=== PATIENT | female | born 1980 | race Caucasian/White ===

== ENCOUNTER → 2016-06-14 | Outpatient (REF) | payer OTHER ==
[~2016-06-14] MED LIST: ACET50TAOT PO; BACT800T5 PO; CELE-19 PO; CYAN1000VL IM; IBUP600T26 PO; NEUR600T PO; OXYCO5TA PO; TYLE325T5 PO; VITAD1000T PO
== END ==
LOC: M LAB REF 12:37
PROVIDERS: ATTEND Obstetrics & Gynecology
DX: Z36 Encounter for antenatal screening of mother (principal)

== ENCOUNTER 2016-07-16 12:07 | Inpatient (IN) | payer OTHER ==
[2016-07-16] VITALS (49 sets, daily range): BP systolic 102–159; BP diastolic 51–100
[~2016-07-16] VITALS: Ht 157.5 cm; Wt 82.0 kg
[~2016-07-16 12:07] MED LIST changes: +OXYC-517 PO; -OXYCO5TA PO
[2016-07-16] MEDS ORDERED: LR 1,000 ML IV SCH (12:11)
[2016-07-16] MEDS ORDERED: LACTATED RINGER'S 1000 ML IV STA (12:11)
[2016-07-16] MEDS ORDERED: OXYTOCIN DRIP 30 UNITS in APPROPRIATE DILUENT 1 EA IV SCH ×2 (12:15→21:38)
[2016-07-16 13:03] LABS: MEAN CORPUSCULAR HEMOGLOBIN 32.1 pg (27.0-33.0); MEAN CORPUSCULAR HGB CONC 34.5 g/dl (32.0-36.5); MEAN CORPUSCULAR VOLUME 93.1 fl (80.0-96.0); RED CELL DISTRIBUTION WIDTH 12.7 % (11.5-14.5); WHITE BLOOD COUNT 10.5 K/mm3 (4.0-10.0)
[2016-07-16] MEDS ORDERED: TUMS500C PO (14:32)
[2016-07-16] MEDS ORDERED: PRENTAB9 PO (14:32)
[2016-07-16] MEDS ORDERED: ACET50TA PO (14:32)
[2016-07-16] MEDS ORDERED: CALCIUM CARBONATE 500 MG CHEW U/D PO PRN (15:00)
[2016-07-16] MEDS ORDERED: FENTANYL 2MCG/ML ROPIVACAINE 0.2% NACL 250 ML CADD As Ordered ONE (16:35)
[2016-07-16] MEDS ORDERED: FENTANYL/ROPIVACAINE/NACL CADD 250 ML EPIDURAL SCH (17:45)
[2016-07-16] MEDS ORDERED: ePHEDrine SULFATE 25 MG/5 ML(5MG/ML) SYRINGE IV PRN (17:45)
[2016-07-16] MEDS ORDERED: NALOXONE INJ 0.4 MG/1 ML VIAL (J2310) IV PRN (17:45)
[2016-07-16] MEDS ORDERED: ONDANSETRON 4MG/2ML VIAL (J2405) IV PRN (17:45)
[2016-07-16] MEDS ORDERED: diphenhydrAMINE INJ 50MG/ML VIAL (J1200) IV PRN (17:45)
[2016-07-16] MEDS ORDERED: EPIDURAL/PCA KEYS XX PRN (17:45)
[2016-07-16] MEDS ORDERED: EPIDURAL COMMENT XX SCH (17:45)
[2016-07-16] MEDS ORDERED: REFRIGERATOR IV KEYS XX PRN (17:45)
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
--- NOTE | 2016-07-16 19:01 | IPNPDOC ---
Obstetrical Progress Note Date of Service The patient was seen on 07/16/16 at 18:30. Progress Note Subjective: Patient received an epidural for pain management. Reports epidural was not working. Objective: heart rate: 130s, moderate variability, positive accelerations , no decelerations. Contractions: Every 2 minutes. Pitocin was turned down to 6 milliunits. Instructed nursing staff to turn down Pitocin to 2 milliunits until patient can get comfortable with her epidural. SVE: 4/100/-1, scant amount of clear fluid. Vital signs: Blood pressure 136/82, heart rate 84. Assessment: IUP at 39 weeks 3 days gestation, category 1 heart rate tracing, spontaneous rupture membranes, active labor Plan: Anesthesia notified about the patient's pain. When patient is comfortable Pitocin can be increased per order. Anticipate cervical change and spontaneous vaginal delivery. CHELSI RAMIREZ CNM Jul 16, 2016 19:01
--- NOTE | 2016-07-16 20:22 | IPNPDOC ---
Obstetrical Progress Note Date of Service The patient was seen on 07/16/16 at 20:05. Progress Note SUBJECTIVE: Patient is comfortable with epidural. OBJECTIVE: FHR: 125, moderate variability, positive accelerations, 2 minute deceleration with a quick recovery. Contractions every 2-3 minutes. Pitocin 2 mu /min. SVE: 6/100/0, moderate amount of bloody show. CURRENT LABS: Please see below. ASSESSMENT: IUP @ 39 wks 3 days gestation, active labor, Category II FHR tracing PLAN: Anticipate cervical change and . VS, I&O, 24H, Fishbone Vital Signs/I&O Vital Signs Date Time Temp Pulse Resp B/P Pulse Ox O2 Delivery O2 Flow Rate FiO2 07/16/16 19:52 98.4 86 18 117/59 07/16/16 19:45 98 CHELSI RAMIREZ CNM Jul 16, 2016 20:22
--- NOTE | 2016-07-16 20:27 | IPNPDOC ---
Obstetrical Progress Note Date of Service The patient was seen on 07/16/16 at 20:24. Progress Note SUBJECTIVE: No complaints. OBJECTIVE: FHR 130, moderate variability, positive accelerations, no decelerations. Contractions every 2 minutes. Pitocin 4 mu/min. ASSESSMENT: IUP @ 39.3, Category I FHR tracing, active labor PLAN: Anticipate cervical change CHELSI RAMIREZ CNM Jul 16, 2016 20:26
[2016-07-16] MEDS ORDERED: METHYLERGONOVINE MALEATE 0.2 MG TAB PO PRN (21:45)
[2016-07-16] MEDS ORDERED: DIBUCAINE 1% OINTMENT 30GM TOP PRN (21:45)
[2016-07-16] MEDS ORDERED: RHOGAM 300 MCG (1500 IU) INJ (J2790) IM SCH (21:45)
[2016-07-16] MEDS ORDERED: DOCUSATE SODIUM 100 MG CAP PO PRN (21:45)
[2016-07-16] MEDS ORDERED: ANUSOL HC CREAM 30GM TOP PRN (21:45)
[2016-07-16] MEDS ORDERED: MEASLES,MUMPS,RUBELLA VACCINE INJ (MMR-II) (90707) SC SCH (21:45)
--- NOTE | 2016-07-16 21:46 | DNPDOC ---
Delivery Note Delivery Note The patient is a 36-year-old now G 5 P 3 at 39.3 weeks' gestation who presented to labor and delivery after being sent over from the office with complaints of ruptured membranes on 07/15/2016 at 1430. She progressed to fully dilated at to 210. Patient pushed to a spontaneous vaginal delivery at 2112 to a living male in the MILES position with restitution to ROT. No Nuchal cord. Occult cord noted. Shoulders delivered with ease and the corpus immediately followed. Baby placed on maternal abdomen crying and active. Cord clamped 2 and cut by father of the baby 4 minutes after . Cord blood obtained. Spontaneous delivery of intact placenta with a three-vessel cord by Ibarra mechanism at 2122. Uterine hemostasis achieved by rapid infusion of IV Pitocin and uterine fundal massage. Perineum and vagina inspected and found to intact. EBL and 250. Infant's 9/9. Weight 6 lbs. 6 oz, 2880 g. 's name Melanie HALL and mom will be breast-feeding. Mother and baby stable at this time. Dr. Dillard aware of delivery. CHELSI RAMIREZ CNM Jul 16, 2016 21:45
[2016-07-17] MEDS: IBUPROFEN 800 MG TAB PO PRN ×2 (00:20→15:09)
[2016-07-17 06:15] VITALS: BP 121/66
[2016-07-17] MEDS: PRENATAL VITAMIN TAB PO SCH (08:11)
[2016-07-17] MEDS: ACETAMINOPHEN 500 MG TAB PO PRN ×2 (08:12→17:35)
[2016-07-17 18:03] VITALS: BP 130/89
[2016-07-18] MEDS: IBUPROFEN 800 MG TAB PO PRN (05:48)
[2016-07-18 05:55] VITALS: BP 112/71
[2016-07-18] MEDS: ACETAMINOPHEN 500 MG TAB PO PRN (08:10)
[2016-07-18] MEDS: PRENATAL VITAMIN TAB PO SCH (08:10)
[2016-07-18] MEDS ORDERED: IBUP-1114 PO (13:17)
== END 2016-07-18 13:30 | disposition home or self-care (01) | DRG 560 ==
LOC: M LDI 12:07 → M OBS 23:51
PROVIDERS: ADMIT Obstetrics & Gynecology; ATTEND Obstetrics & Gynecology
PROC: 10E0XZZ Delivery of Products of Conception, External Approach (ICD-10-PCS; principal; 2016-07-16)
DX: O99.62 Diseases of the digestive system complicating childbirth (principal); K42.9 Umbilical hernia without obstruction or gangrene; Z3A.39 39 weeks gestation of pregnancy; Z37.0 Single live birth; K46.9 Unspecified abdominal hernia without obstruction or gangrene

== ENCOUNTER → 2016-08-02 | Emergency (ER) | payer OTHER ==
[~2016-08-02] VITALS: Ht 157.5 cm; Wt 79.4 kg
[~2016-08-02] MED LIST changes: +ACET50TA PO; +ALBU17IN INH; +CLON0.5T PO; +FLUO20CA9 PO; +IBUP-1114 PO; +NICO21PAT TD; +OCEA0.654; +PRENTAB9 PO; +TRAZ10TA PO; +TUMS500C PO; +TYLE500T78 PO; +VITMTA PO
[2016-08-02 16:29] LABS: MEAN CORPUSCULAR HEMOGLOBIN 31.7 pg (27.0-33.0); MEAN CORPUSCULAR HGB CONC 34.6 g/dl (32.0-36.5); MEAN CORPUSCULAR VOLUME 91.8 fl (80.0-96.0); RED CELL DISTRIBUTION WIDTH 12.9 % (11.5-14.5); WHITE BLOOD COUNT 6.8 K/mm3 (4.0-10.0)
[2016-08-02 16:36] LABS: CONTROL LINE INT CTR LINE PRESENT; METHADONE URINE NEGATIVE (NEGATIVE); TRICYCLIC ANTIDEPRESS URINE NEGATIVE (NEGATIVE)
[2016-08-02 16:42] LABS: CONTROL LINE HCG INT CTR LINE PRESENT
[2016-08-02 16:58] LABS: ALBUMIN 3.8 GM/DL (3.2-5.2); ALBUMIN/GLOBULIN RATIO 0.95 (1.00-1.93); ALKALINE PHOSPHATASE 148 U/L (45-117); ALT/SGPT 20 U/L (12-78); ANION GAP 13 MEQ/L (8-16); AST/SGOT 30 U/L (15-37); BILIRUBIN,DIRECT 0.1 MG/DL (0.0-0.2); BILIRUBIN,TOTAL 0.6 MG/DL (0.2-1.0); BLOOD UREA NITROGEN 7 MG/DL (7-18); CALCIUM LEVEL 8.5 MG/DL (8.5-10.1); CARBON DIOXIDE LEVEL 22 MEQ/L (21-32); CHLORIDE LEVEL 111 MEQ/L (98-107); CREATININE FOR GFR 0.57 MG/DL (0.55-1.02); GLOMERULAR FILTRATION RATE > 60.0 (>60); GLUCOSE, FASTING 83 MG/DL (70-105); POTASSIUM SERUM 3.4 MEQ/L (3.5-5.1); SODIUM LEVEL 146 MEQ/L (136-145); TOTAL PROTEIN 7.8 GM/DL (6.4-8.2)
[2016-08-02 23:42] VITALS: BP 153/100
== END | disposition home or self-care (01) ==
LOC: M ED 16:07
DX: F53 Mental and behavioral disorders associated with the puerperium, not elsewhere classified (principal); Z88.1 Allergy status to other antibiotic agents; Z88.8 Allergy status to other drugs, medicaments and biological substances; F17.210 Nicotine dependence, cigarettes, uncomplicated
CPT/HCPCS: 36415; 80048; 80076; 80306; 84443; 84703; 85027; 99285; G0480

== ENCOUNTER 2016-08-03 12:51 | Inpatient (IN) | payer OTHER ==
[~2016-08-03] VITALS: Ht 157.5 cm; Wt 77.1 kg
[~2016-08-03 12:51] MED LIST changes: -ALBU17IN INH; -CLON0.5T PO; -FLUO20CA9 PO; -NICO21PAT TD; -OCEA0.654; -TRAZ10TA PO; -TYLE500T78 PO; -VITMTA PO
[2016-08-03 16:05] LABS: MEAN CORPUSCULAR HEMOGLOBIN 32.1 pg (27.0-33.0); MEAN CORPUSCULAR HGB CONC 34.6 g/dl (32.0-36.5); MEAN CORPUSCULAR VOLUME 92.6 fl (80.0-96.0); RED CELL DISTRIBUTION WIDTH 12.9 % (11.5-14.5)
[2016-08-03 16:10] LABS: CONTROL LINE INT CTR LINE PRESENT; METHADONE URINE NEGATIVE (NEGATIVE); TRICYCLIC ANTIDEPRESS URINE NEGATIVE (NEGATIVE)
[2016-08-03 16:19] LABS: CONTROL LINE HCG INT CTR LINE PRESENT
[2016-08-03 16:37] LABS: ALBUMIN 3.4 GM/DL (3.2-5.2); ALBUMIN/GLOBULIN RATIO 0.97 (1.00-1.93); ALKALINE PHOSPHATASE 129 U/L (45-117); ALT/SGPT 16 U/L (12-78); ANION GAP 11 MEQ/L (8-16); AST/SGOT 23 U/L (15-37); BILIRUBIN,DIRECT 0.3 MG/DL (0.0-0.2); BLOOD UREA NITROGEN 8 MG/DL (7-18); CALCIUM LEVEL 8.9 MG/DL (8.5-10.1); CARBON DIOXIDE LEVEL 23 MEQ/L (21-32); CHLORIDE LEVEL 107 MEQ/L (98-107); CREATININE FOR GFR 0.53 MG/DL (0.55-1.02); GLOMERULAR FILTRATION RATE > 60.0 (>60); GLUCOSE, FASTING 73 MG/DL (70-105); POTASSIUM SERUM 3.6 MEQ/L (3.5-5.1); SODIUM LEVEL 141 MEQ/L (136-145); TOTAL PROTEIN 6.9 GM/DL (6.4-8.2)
[2016-08-03] MEDS ORDERED: traZODone 50 MG TAB PO PRN (18:00)
[2016-08-03] MEDS ORDERED: MAALOX 30 ML SUSP *UDC PO PRN (18:00)
[2016-08-03] MEDS ORDERED: ACETAMINOPHEN TAB 650MG DOSE (2X325MG) PO PRN (18:00)
[2016-08-03] MEDS ORDERED: MOM 30ML SUSPENSION UDC PO PRN (18:00)
[2016-08-03] MEDS ORDERED: TYLE500T78 PO (18:53)
[2016-08-03] MEDS ORDERED: VITMTA PO (18:53)
[2016-08-03] MEDS ORDERED: ALBU17IN INH (18:53)
[2016-08-03 20:32] VITALS: BP 147/100
[2016-08-04 06:46] VITALS: BP 147/94
[2016-08-04 12:30] VITALS: BP 150/88
[2016-08-04] MEDS ORDERED: FLUOXETINE 20 MG/5 ML PO ONE (12:30)
[2016-08-04] MEDS: clonazePAM 0.5 MG TAB PO SCH ×2 (12:41→22:01)
[2016-08-04 13:30] VITALS: BP 140/100
[2016-08-04 18:00] VITALS: BP 154/110
[2016-08-04 18:18] VITALS: BP 148/104
[2016-08-04] MEDS ORDERED: traZODone 50 MG TAB PO SCH (21:00)
[2016-08-04] MEDS ORDERED: clonazePAM 0.5 MG TAB PO ONE (21:15)
[2016-08-04] MEDS ORDERED: traZODone 50 MG TAB PO PRN (21:15)
[2016-08-05 06:00] VITALS: BP 141/77
--- NOTE | 2016-08-05 06:48 | REP ---
CT BRAIN WITHOUT IV CONTRAST: CT brain is performed without IV contrast. Ventricles are normal in size and position. There is no midline shift. Area of low density in the region of the left basal ganglia is unchanged. There is no acute hemorrhage. There is no extra-axial fluid collection. There is no midline shift or mass effect. Bone window examination is unremarkable. Paranasal sinuses are clear as are the mastoid air cells. IMPRESSION: Negative noncontrast CT brain with no change since prior study of 06/21/2015. Signed by Mal Michelle MD 08/05/2016 01:52 P
--- NOTE | 2016-08-05 08:38 | MHHPE ---
DATE OF ADMISSION: 08/03/2016 LEGAL STATUS AT ADMISSION: 9.39 legal status. CHIEF COMPLAINT: "I've been crying everyday and very depressed since I had my baby two weeks ago." HISTORY OF PRESENT ILLNESS: A 36-year-old female with a history of depression 14 years ago with the delivery of her first baby, who was admitted to our unit on a 9.39 legal status. According to the chart, right after she delivered her third baby, she started feeling very depressed and crying uncontrollably. During the interview today, the patient reports that she has been feeling very depressed with very low energy, low self-esteem, very anxious with symptoms compatible with panic episodes with high anxiety, tachycardia, feeling dizzy, and feeling that something wrong is going to happen. She also reports difficulty sleeping. She has not been able to sleep more than two hours a night in the context of the new delivery and the care that she has to provide to the baby. Her speech is rapid, pressured, and she is hyperactive. She reports she has been having problems with attention and concentration since she has been sleep deprived. During the interview, there is no evidence of psychotic symptoms. No auditory or visual hallucinations or delusions. The patient was very worried that her depression will get worse and she may hurt herself or baby, but now during the interview, she thinks that maybe it was her anxiety and she wants to be observed and treated. PAST PSYCHIATRIC HISTORY: As above. The patient had an episode of depression that needed to be treated pharmacologically with medication that she does not remember for approximately two weeks. The patient also reports being treated by her primary care provider (PCP) for anxiety, worry, and preoccupation. PAST MEDICAL HISTORY: The patient has B12 deficiency. No other acute medical problems. The patient reports that she may have Crohn's disease but this diagnosis has not been made. PAST SURGICAL HISTORY: Status post cholecystectomy. FAMILY HISTORY: Her 14-year-old son has been diagnosed with pervasive developmental disorder (PDD) and also attention deficit disorder (ADD), oppositional defiance disorder. No other relatives have any psychotic problems. No drugs or alcohol or suicidal attempts in the family. SUBSTANCE ABUSE HISTORY: The patient denies any problems with drugs or alcohol. She stated that she drank excessively before admission because of her very high anxiety, but denies any problems with alcohol dependency/abuse or any drug problems. SOCIAL HISTORY: The patient was raised by her mother and stepfather. Her father went to [facility] before she was born. She reports a completely normal childhood with no abuse or neglect. She has a bachelors degree, recently graduated. She got at age 21 for eight years. She then . She is not in a relationship for the last two years. She says that her boyfriend is very supportive. She states she has a very good support group, including family and friends. REVIEW OF SYSTEMS: CONSTITUTIONAL: No weight loss, fever, chills, weakness, or fatigue. HEENT: No visual loss, blurry vision, double vision, or yellow sclerae. No hearing loss, sneezing, congestion, runny nose, or sore throat. SKIN: No rash or itching. CARDIOVASCULAR: No chest pain, chest pressure, chest discomfort, palpitations, or edema. RESPIRATORY: No shortness of breath, cough, or sputum. GASTROINTESTINAL: No anorexia, nausea, vomiting, or diarrhea. No abdominal pain or blood. GENITOURINARY: No burning or pain on urination. NEUROLOGICAL: No headache, dizziness, syncope, paralysis, ataxia, numbness, or tingling. MUSCULOSKELETAL: No muscle pain, back pain, joint pain or stiffness. HEMATOLOGIC: No anemia, bleeding, or bruising. LYMPHATICS: No history of a splenectomy. ENDOCRINOLOGIC: No reports of sweating, cold or heat intolerance. No polyuria or polydipsia. ALLERGIES: No history of asthma, hives, eczema, or rhinitis. PHYSICAL EXAMINATION: As per physician geological survey field assistant. LABORATORY DATA AT ADMISSION: CBC is unremarkable. CMP within normal limits except alkaline phosphatase of 129. TSH within normal limits. test negative. Blood alcohol level negative. Urine drug screen is negative. MENTAL STATUS EXAMINATION: The patient is dressed in [facility]. The patient is cooperative during the examination. Speech is somewhat pressured. She has fair eye contact. Mood is anxious and depressed. Affect is labile, tearful at times. The patient is oriented to time, place, person, and situation. Attention and concentration are impaired secondary to the sleep deprivation and depression. Memory is also affected by the above. Thought processes are coherent, logical, and goal-directed. The patient does not have auditory or visual hallucination. The patient does not have paranoid, persecutory, somatic, grandiose, or mandaeism delusions. The patient is tien for safety but reports some suicidal thoughts before admission. No homicidal ideation. Insight and judgment are fair. DIAGNOSES: AXIS I: depression. AXIS II: Deferred. AXIS III: B12 deficiency by history. INITIAL TREATMENT PLAN: The patient was admitted on a 9.39 legal status. Complete history was obtained. With her permission, family will be contacted and database will be expanded. Her medication regime will be reviewed and changed accordingly. She will be provided with protected environment. She will be treated with individual, group, and milieu therapy. She will also receive supportive psychoeducation. Discharge planning will commence immediately. Length of stay will be between five and seven days. Outpatient followup will be strongly recommended. The treatment plan will focus initially on depression and risk of suicide.
[2016-08-05] MEDS: clonazePAM 0.5 MG TAB PO SCH ×2 (08:46→20:17)
[2016-08-05] MEDS ORDERED: FLUoxetine 10 MG CAP PO SCH (09:00)
[2016-08-05] MEDS ORDERED: clonazePAM 0.5 MG TAB PO ONE (10:45)
[2016-08-05 11:50] VITALS: BP 136/90
[2016-08-05 18:00] VITALS: BP 128/79
[2016-08-05] MEDS: traZODone 100 MG TAB PO SCH (20:17)
[2016-08-06 06:29] VITALS: BP 127/85
--- NOTE | 2016-08-06 07:23 | HPE ---
DATE OF ADMISSION: 08/03/2016 DATE OF SERVICE: 08/04/2016 Please refer to psychiatric history and evaluation for further details on this admission. This examination and history performed 08/04/2016 is intended for medical issues, which may need treatment, followup, or consult on this 36-year-old female. PRIMARY CARE PROVIDER: Ashanti Hawkins, nurse practitioner. ALLERGIES: BUPROPION, ERYTHROMYCIN. SOCIAL HISTORY: She is . She has a significant other of 2 years. She has three children, a 14-year-old with significant mental health and learning issues and a 2-week-old . Ethyl alcohol (EtOH): She drank yesterday until intoxication but otherwise she only has a few glasses of wine about once a month. Smokes five or six cigarettes per day. Recreational drug use none. PAST MEDICAL HISTORY: Vitamin B12 deficiency. She follows with [facility]. She takes injection once a month. History of psoriasis, base of her neck and hairline. Uses a special shampoo as needed. PAST SURGICAL HISTORY: Hernia repairs in 2014 times two, one in 2012, one in 2010. History of cholecystectomy. HOME MEDICATIONS: - Tylenol 1000 mg by mouth every 6 hours as needed for pain or fever - multivitamin one by mouth daily Electrolytes are normal. BUN is 8, creatinine 0.53, alkaline phosphatase 129. Toxicology screen is negative. FAMILY HISTORY: Noncontributory. REVIEW OF SYSTEMS: The patient is currently breast-feeding, and her only other complaint was she has had headaches over the last 3 days. Blood pressure is noted to be elevated, possibly secondary to anxiety, but will get a CAT scan of her brain. Otherwise, review of systems was negative other than her anxiety and depression. PHYSICAL EXAMINATION: A 36-year-old cooperative female in no acute distress. Height 62 inches, weight 77.1 kg, body mass index (BMI) 31.1, temperature 97, blood pressure 148/88, pulse 84, respirations 18. The patient is alert and oriented times three. Pupils are equal and react to light. Extraocular movements intact. Cornea and sclerae clear. Conjunctivae normal. No facial asymmetry. Pharynx, tongue, gums pink and moist. Tongue is midline. NECK: Is supple without lymphadenopathy. No thyromegaly. No goiter. Carotids 2+ without bruit. CHEST: Clear to auscultation without wheeze or retraction. HEART: Is regular. ABDOMEN: Benign. Bowel sounds positive. GENITOURINARY ()/RECTAL: Not done. EXTREMITIES: Show equal strength, full range of motion. No cyanosis, clubbing, or edema. Negative Romberg. Gait steady. Cranial nerves III-XII grossly intact. IMPRESSION AND PLAN: 1. Headaches. Will get a CT scan. 2. Elevated blood pressure since arrival, ranging from initially 182/102 at 12:53 on 08/03/2016. She has now been placed on Prozac. Has had Klonopin. Is 148/88. As anxiety improves, expect blood pressure to improve. Will monitor for 24 hours more. May need an antihypertensive. Will get a CT of the brain.
[2016-08-06] MEDS: clonazePAM 0.5 MG TAB PO SCH ×2 (08:26→20:04)
[2016-08-06] MEDS: FLUoxetine 20 MG CAP PO SCH (08:27)
[2016-08-06] MEDS: NICOTINE 21MG/24HR 1 EA TRANSDERMAL TD SCH (16:27)
[2016-08-06 18:00] VITALS: BP 122/90
--- NOTE | 2016-08-06 18:08 | IPN ---
DATE: 08/05/2016 SUBJECTIVE: "I could not sleep last night, and I am very anxious." OBJECTIVE: The patient continues with high anxiety, rumination and preoccupation. The patient slept somewhat better but reported she was waking up very frequently. The patient is tolerating well the pharmacological treatment and is requesting to have "medication for anxiety." MENTAL STATUS EXAMINATION: The patient is dressed in [facility]. The patient is cooperative, has fair eye contact. Speech is normal in rate, volume, articulation, is coherent and is spontaneous. Mood is depressed and anxious. Affect is congruent with mood. No evidence of delusions or hallucinations. Memory is fair. The patient is fully oriented. Associations are intact. Thinking is logical. Thought content is appropriate. The patient is able to contract for safety and denies suicidal or homicidal ideation during the interview. Insight and judgment is fair. ASSESSMENT: 1. depression. 2. High anxiety. 3. Insomnia. PLAN: 1. Increase Prozac to 20 mg by mouth every morning. 2. Increase clonazepam to 0.5 mg by mouth twice a day. 3. Increase trazodone to 100 mg by mouth nightly. 4. Continue close observation. 5. Continue medication management, individual and group therapy.
[2016-08-06] MEDS: traZODone 100 MG TAB PO SCH (21:51)
[2016-08-07 06:28] VITALS: BP 119/69
[2016-08-07] MEDS: clonazePAM 0.5 MG TAB PO SCH ×2 (08:08→20:54)
[2016-08-07] MEDS: FLUoxetine 20 MG CAP PO SCH (08:08)
[2016-08-07] MEDS: NICOTINE 21MG/24HR 1 EA TRANSDERMAL TD SCH (08:08)
--- NOTE | 2016-08-07 18:31 | IPNPDOC ---
[facility] Progress Note Progress Note DATE OF SERVICE: 08/07/16 HISTORY: Patient is a 36-year-old, , mother of 3 children.The patient reports reduced symptoms of anxiety, rumination and preoccupation. Patient was admitted for inpatient treatment due to presenting in the ER with feelings of depression and crying uncontrollably, indicated she had been feeling very depressed with low energy, low self-esteem, high anxiety with panic episodes since just after the delivery of her third baby at time of admission patient also reportedly admitted to having notable sleep problems, stated she averages approximately 2 hours a night. Patient today indicates she has been sleeping better since being in the hospital, reports anxiety 2/10, depression 2/10, denies current suicidal and homicidal ideation, denies ever experiencing suicidal or homicidal ideation, denies audiovisual hallucinations, and denies urge to engage in self-injurious behavior. Patient states prior to entering hospital she was experiencing disturbing nightmares, denies having nightmares since being in the inpatient environment. Patient indicates current medication regimen is effective and she denies medication side effects. Patient states she has been having routine visitation with her baby and indicates family has been visiting and providing emotional support as well. Patient makes no additional request for medication to address symptoms of anxiety today, policy writer sales offers Atarax as PRN anxiolytic, is informed by patient hat Atarax is ineffective. Patient has been encouraged to utilize Klonopin only when needed, and to make efforts to develop coping mechanisms to deal with periods of increased anxiety. Patient denies having any safety concerns related to herself, her boyfriend, or her children in the home. Addendum: [facility] was here to meet with patient and her baby today. Per safety coordinator, [facility] does not intend to open a case and indicated patient requires no monitoring at this time. VITAL SIGNS: See below. NEW TEST RESULTS: No new results MEDICAL HISTORY: Vitamin B12 deficiency, history of psoriasis hernia repairs in 2014, 2012, 2010. History of cholecystectomy. PA is monitoring blood pressure. CT scan ordered by OLGA to address headaches HCG negative on admission, patient states she is not breast-feeding CURRENT MEDICATIONS: See below. MENTAL STATUS EXAMINATION: The patient is dressed in hospital clothing, exhibits adequate personal hygiene, makes good eye contact, ambulates with steady gait, appears stated age. The patient is cooperative. Speech is normal in rate, volume, articulation, is coherent and is spontaneous. Mood is less depressed, patient presents as mildly anxious. Affect is congruent with mood. No evidence of delusions or hallucinations. Memory appears intact, patient is fully oriented, associations are intact. Thinking is logical. Thought content is appropriate. The patient is able to agree to notify staff should symptoms of anxiety and depression resurface, and suicidal or homicidal ideation emerge. Patient denies suicidal or homicidal ideation during the interview. Insight and judgment is fair. DIAGNOSES: depression, anxiety disorder, sleep disorder, B12 deficiency ASSESSMENT: Patient is 36-year-old, mother of 3 who indicates she has been visible on the unit and attending groups. Patient begins interaction with policy writer sales by asking when she will be discharged to home. Patient denies current suicidal and homicidal ideation, informs policy writer sales that she has never experienced suicidality, and denies ever experiencing ideation related to filicide. Patient' s medication regimen was initiated by weekend provider who recently increased patient's Prozac to 20 mg, and patient also takes trazodone and Klonopin. Patient indicates current medication regimen is effective and she denies medication side effects. Will continue to monitor patient's response to medications, monitor for medication side effects, evaluate resolution of suicidal and homicidal ideation, and discharge readiness. Patient states when discharging she plans to discharge to home with boyfriend and 2 children and is willing to participate in follow-up outpatient treatment for psychotherapy and medication management services. Patient denies need for outpatient substance abuse treatment. MANAGEMENT PLAN: Continue Prozac 20 mg po q am, Klonopin 0.5 mg po BID, and trazodone 100 mg by mouth hs PRN insomnia Maintain safety precautions Patient to attend groups and participate in unit programming to develop coping strategies Engage patient in discharge planning process and arrange meeting with port system to ensure safe discharge planning when appropriate Patient to follow up with PROJECT MANAGEMENT ADVISOR and PCM upon discharge TIME SPENT: 35 minutes. Vital Signs Vital Signs Date Time Temp Pulse Resp B/P Pulse Ox O2 Delivery O2 Flow Rate FiO2 08/07/16 06:28 97.8 70 18 119/69 08/03/16 20:32 96 Room Air Current Medications Current Medications Acetaminophen (Tylenol Tab) 650 mg Q6HP PRN PO HEADACHE or DISCOMFORT; Start at 18:00; Stop 09/02/16 at 17:59 Al Hydrox/Mg Hydrox/Simethicone (Mylanta) 30 ml Q4HP PRN PO HEARTBURN/ INDIGESTION; Start 08/03/16 at 18:00; Stop 09/02/16 at 17:59 Clonazepam (KlonoPIN) 0.25 mg BID PO Last administered on 08/05/16 08:46; Start 08/04/16 at 09:00; Stop 08/05/16 at 10:32; Status DC Clonazepam (KlonoPIN) 0.5 mg BID PO Last administered on 08/07/16 08:08; Start 08/05/16 at 21:00; Stop 08/12/16 at 20:59 Fluoxetine HCl (PROzac) 10 mg DAILY PO Last administered on 08/05/16 08:45; Start 08/05/16 at 09:00; Stop 08/05/16 at 10:53; Status DC Fluoxetine HCl (PROzac) 20 mg QAM PO Last administered on 08/07/16 08:08; Start 08/06/16 at 09:00; Stop 09/05/16 at 08:59 Home Med (Med Rec Complete!) ASDIRECTED XX ; Start 08/03/16 at 19:00; Stop at 19:00; Status DC Magnesium Hydroxide (Milk Of Magnesia) 30 ml DAILYPRN PRN PO CONSTIPATION; Start 08/03/16 at 18:00; Stop 09/02/16 at 17:59 Nicotine (Nicoderm Cq 21mg) 1 patch DAILY TD Last administered on 08/07/16 08: 08; Start 08/06/16 at 09:00; Stop 09/05/16 at 08:59 Trazodone HCl (Desyrel) 50 mg QHS PO Last administered on 08/04/16 22:00; Start 08/04/16 at 21:00; Stop 08/05/16 at 10:39; Status DC Trazodone HCl (Desyrel) 50 mg QHSP PRN PO INSOMNIA; Start 08/03/16 at 18:00; Stop 08/04/16 at 11:57; Status DC Trazodone HCl (Desyrel) 50 mg QHSP PRN PO INSOMNIA; Start 08/04/16 at 21:15; Stop 08/05/16 at 10:32; Status DC Trazodone HCl (Desyrel) 100 mg QHS PO Last administered on 08/06/16t 21:51; Start 08/05/16 at 21:00; Stop 09/04/16 at 20:59 Allergies Coded Allergies: Erythromycin (Verified Allergy, Severe, face swells,vomits, 09/04/12) Bupropion (Verified Allergy, Unknown, 03/18/15) Debi Garcia Aug 07, 2016 18:31 Debi Garcia Aug 07, 2016 18:31
[2016-08-07] MEDS: traZODone 100 MG TAB PO SCH (21:56)
[2016-08-07 22:21] VITALS: BP 128/77
[2016-08-08 06:22] VITALS: BP 104/57
[2016-08-08] MEDS: clonazePAM 0.5 MG TAB PO SCH ×2 (08:26→20:25)
[2016-08-08] MEDS: FLUoxetine 20 MG CAP PO SCH (08:26)
[2016-08-08] MEDS: NICOTINE 21MG/24HR 1 EA TRANSDERMAL TD SCH (08:26)
--- NOTE | 2016-08-08 17:08 | IPNPDOC ---
[facility] Progress Note Progress Note DATE OF SERVICE: 08/08/16 HISTORY: Patient is a 36-year-old, , mother of 3 children. Oxyacetylene Torch Operator met with patient today to assess treatment progress on inpatient unit. Patient today denies symptoms of depression, reports 2/10 anxiety, denies suicidal and homicidal ideation, denies audiovisual hallucinations, denies urge to engage in self-injurious behavior. Patient reiterates today that she never was suicidal and never experienced homicidal ideation, never experienced thoughts of harming her children, states she became so anxious after hearding stories from a friend about the friend's post symptoms that she began to fear she would do something to harm her child. Patient denies experiencing disturbing nightmares since entering the hospital, further denies symptoms of uncontrollable crying, craving or alcohol use, or symptoms of anorexia. Patient states at that point she sought treatment for herself. Patient indicates current medication regimen is very effective and denies medication side effects. Patient states she has been sleeping well and denies nightmares, reports improvement to energy level, concentration and focus, and appetite. Patient states she has been having routine visitation with her baby and indicates family has been visiting and providing emotional support as well. Patient makes no additional request for medication to address symptoms of anxiety today. Patient has been encouraged to utilize Klonopin when needed, and to make efforts to develop coping mechanisms to deal with periods of increased anxiety. Patient denies having any safety concerns related to herself, her boyfriend, or her children in the home. Clinical consultation completed with provider who prescribed benzodiazepine and who indicated okay to discharge patient to home on Klonopin with instructions for patient to be tapered off Klonopin but outpatient provider within the next month. Oxyacetylene Torch Operator educated patient on the potential side effects and risks of long- term benzodiazepine use, strongly encouraged patient to work with outpatient provider to taper off of benzodiazepine within the next 30 days and also instructed patient to not consume alcohol while taking medication. Patient is also been educated on the risks of using trazodone as a sleep aid while caring for her child, patient verbalizes understanding and stated that she and her boyfriend have worked out a rotation where he will provide childcare on the nights that she is utilizing the sleep aid. Of Note: [facility] [place] was here on 08/07/16 to meet with patient and her baby today. Per weatherization coordinator, CPS does not intend to open a case and indicated patient requires no monitoring at this time. VITAL SIGNS: See below. NEW TEST RESULTS: No new results MEDICAL HISTORY: Vitamin B12 deficiency, history of psoriasis hernia repairs in 2014, 2012, 2010. History of cholecystectomy. PA is monitoring blood pressure. Labs on admission indicate elevated bilirubin and alkaline phosphatase and low creatinine and AGR. CT scan ordered by PA to address headaches HCG negative on admission, patient states she is not breast-feeding UDS negative on admission EKG was ordered by newswriter on 08/07/16, EKG not completed and new order entered date of entry CURRENT MEDICATIONS: See below. MENTAL STATUS EXAMINATION ON DISCHARGE: Patient is 36-year-old female who is pleasant and cooperative, makes good eye contact, is easily engaged, displays adequate personal hygiene, ambulates with steady gait, appears stated age. Speech is of normal rate, rhythm, volume, coherent, spontaneous. Language skills are within normal limits. Thought processes including: Clear, goal-directed. Thought content: Logical, rational. Abstract reasoning: Intact. Description of associations: Intact. Description of abnormal or psychotic thoughts: [denies hallucinations, delusions , preoccupation with violence, homicidal or suicidal ideation, and obsessions]. Judgment: Adequate. Insight: Adequate. Orientation to [time, place and person]. Recent and remote memory: [Immediate, short-term and long-term memory is intact] . Attention span and concentration: Good. Language: [Normal]. Fund of knowledge: Adequate. Mood: "I feel much better, I have not of the thinking I had before and I feel ready to go home and be with my family." No depression noted, patient appears less depressed, no mood lability noted Affect: Full range, brightens frequently inappropriately, congruent with mood. DIAGNOSES: depression, anxiety disorder, sleep disorder, B12 deficiency ASSESSMENT: Patient is 36-year-old, mother of 3 who has been visible on the unit , participating well in unit programming, and interacting appropriately with staff and peers. Patient is made marked improvement during her inpatient stay and indicates today she feels prepared for discharge tomorrow. Patient is able to verbalize how to safely use medications with child, is not breast- feeding. Patient is aware she will be following up with outpatient provider to taper off Klonopin once stabilized on antidepressant. Patient indicates current medication regimen is effective and she denies medication side effects. Clinical consult completed with initiating provider regarding patient's discharge on current medication regimen. Will continue to monitor patient's response to medications and monitor for medication side effects, and will begin to prepare patient for discharge tomorrow. quality control coordinator will be arranging family meeting with patient's boyfriend and patient's boyfriend will be transporting patient to home, patient will then follow up with outpatient services through [facility] for psychotherapy and medication management services. Patient denies need for outpatient substance abuse treatment indicating she is not a regular consumer of alcohol, notes intoxication just prior to hospitalization was an anomaly and an effort at self medication. MANAGEMENT PLAN: Continue Prozac 20 mg po q am, Klonopin 0.5 mg po BID, and trazodone 100 mg by mouth hs PRN insomnia Maintain safety precautions Patient to attend groups and participate in unit programming to develop coping strategies Engage patient in discharge planning process and arrange meeting with support system to ensure safe discharge planning when appropriate Patient to follow up with MANAGER RECOVERY and PCM upon discharge TIME SPENT: 35 minutes. Vital Signs Vital Signs Date Time Temp Pulse Resp B/P Pulse Ox O2 Delivery O2 Flow Rate FiO2 08/08/16 06:22 97.0 62 18 104/57 08/03/16 20:32 96 Room Air Current Medications Current Medications Acetaminophen (Tylenol Tab) 650 mg Q6HP PRN PO HEADACHE or DISCOMFORT; Start at 18:00; Stop 09/02/16 at 17:59 Al Hydrox/Mg Hydrox/Simethicone (Mylanta) 30 ml Q4HP PRN PO HEARTBURN/ INDIGESTION; Start 08/03/16 at 18:00; Stop 09/02/16 at 17:59 Clonazepam (KlonoPIN) 0.25 mg BID PO Last administered on 08/05/16 08:46; Start 08/04/16 at 09:00; Stop 08/05/16 at 10:32; Status DC Clonazepam (KlonoPIN) 0.5 mg BID PO Last administered on 08/08/16 08:26; Start 08/05/16 at 21:00; Stop 08/12/16 at 20:59 Fluoxetine HCl (PROzac) 10 mg DAILY PO Last administered on 08/05/16 08:45; Start 08/05/16 at 09:00; Stop 08/05/16 at 10:53; Status DC Fluoxetine HCl (PROzac) 20 mg QAM PO Last administered on 08/08/16 08:26; Start 08/06/16 at 09:00; Stop 09/05/16 at 08:59 Home Med (Med Rec Complete!) ASDIRECTED XX ; Start 08/03/16 at 19:00; Stop at 19:00; Status DC Magnesium Hydroxide (Milk Of Magnesia) 30 ml DAILYPRN PRN PO CONSTIPATION; Start 08/03/16 at 18:00; Stop 09/02/16 at 17:59 Nicotine (Nicoderm Cq 21mg) 1 patch DAILY TD Last administered on 08/08/16 08: 26; Start 08/06/16 at 09:00; Stop 09/05/16 at 08:59 Trazodone HCl (Desyrel) 50 mg QHS PO Last administered on 08/04/16 22:00; Start 08/04/16 at 21:00; Stop 08/05/16 at 10:39; Status DC Trazodone HCl (Desyrel) 50 mg QHSP PRN PO INSOMNIA; Start 08/03/16 at 18:00; Stop 08/04/16 at 11:57; Status DC Trazodone HCl (Desyrel) 50 mg QHSP PRN PO INSOMNIA; Start 08/04/16 at 21:15; Stop 08/05/16 at 10:32; Status DC Trazodone HCl (Desyrel) 100 mg QHS PO Last administered on 08/07/16 21:56; Start 08/05/16 at 21:00; Stop 09/04/16 at 20:59 Allergies Coded Allergies: Erythromycin (Verified Allergy, Severe, face swells,vomits, 09/04/12) Bupropion (Verified Allergy, Unknown, 03/18/15) Debi Garcia Aug 08, 2016 17:08
[2016-08-08 18:00] VITALS: BP 127/75
[2016-08-08] MEDS: traZODone 100 MG TAB PO SCH (22:01)
[2016-08-08] MEDS ORDERED: SODIUM CHLORIDE NASAL 0.65% SPRAY BTL (OCEAN) PRN (22:45)
[2016-08-09 06:39] VITALS: BP 110/66
[2016-08-09] MEDS: NICOTINE 21MG/24HR 1 EA TRANSDERMAL TD SCH (08:13)
[2016-08-09] MEDS: clonazePAM 0.5 MG TAB PO SCH (08:15)
[2016-08-09] MEDS: FLUoxetine 20 MG CAP PO SCH (08:15)
[2016-08-09] MEDS ORDERED: NICO21PAT TD (08:35)
--- NOTE | 2016-08-09 10:28 | DS.PDOC ---
[facility] Discharge Summary Discharge Summary DATE OF ADMISSION: Aug 03, 2016 at 17:56 DATE OF DISCHARGE: Aug 09, 2016 HISTORY: Patient is a 36-year-old female with a history of depression 14 years ago with the delivery of her first baby, who was admitted to our unit on a 9.39 legal status. According to the chart, right after she delivered her third baby, she started feeling very depressed and crying uncontrollably. During the interview today, the patient reports that she has been feeling very depressed with very low energy, low self-esteem, very anxious with symptoms compatible with panic episodes with high anxiety, tachycardia, feeling dizzy, and feeling that something wrong is going to happen. She also reports difficulty sleeping. She has not been able to sleep more than two hours a night in the context of the new delivery and the care that she has to provide to the baby. Her speech is rapid, pressured, and she is hyperactive. She reports she has been having problems with attention and concentration since she has been sleep deprived. During the interview, there is no evidence of psychotic symptoms. No auditory or visual hallucinations or delusions. The patient was very worried that her depression will get worse and she may hurt herself or baby, but now during the interview, she thinks that maybe it was her anxiety and she wants to be observed and treated. PAST PSYCHIATRIC HISTORY: As above. The patient had an episode of depression that needed to be treated pharmacologically with medication that she does not remember for approximately two weeks. The patient also reports being treated by her primary care provider (PCP) for anxiety, worry, and preoccupation. MEDICAL HISTORY: Vitamin B12 deficiency, history of psoriasis, hernia repairs in 2014, 2012, 2010. History of cholecystectomy. PA has evaluated blood pressure. Labs on admission indicate elevated bilirubin and alkaline phosphatase and low creatinine and AGR. CT scan ordered by PA to address headaches HCG negative on admission, patient states she is not breast-feeding UDS negative on admission EKG was ordered by proposal writer on 08/07/16, EKG not completed with new order entered for 08/08/16 and second EKG not completed. Patient has been instructed to follow- up with outpatient provider. SURGICAL HISTORY: Status post cholecystectomy. FAMILY HISTORY: Patient's 14-year-old son has been diagnosed with pervasive developmental disorder (PDD) and also attention deficit disorder (ADD), oppositional defiance disorder. No other relatives have any psychotic problems. No drugs or alcohol or suicidal attempts in the family. SOCIAL HISTORY: The patient was raised by her mother and stepfather. Her father went to snf before she was born. She reports a completely normal childhood with no abuse or neglect. She has a bachelors degree, recently graduated. She was at age 21 for eight years, was then . Patient has been in a relationship for the past 2 years and indicates her boyfriend is very supportive. Patient indicates she has a very good support group, including family and friends. SUBSTANCE ABUSE HISTORY: The patient denies any problems with drugs or alcohol. She stated that she drank excessively just prior to admission in an effort to self medicate her high level of anxiety, but denies any problems with alcohol dependency/abuse or any drug problems. LEGAL HISTORY: Patient denies TREATMENT PROGRESS ON UNIT: Patient is 36-year-old, mother of 3 who has been visible on the unit, participating well in unit programming, and interacting appropriately with staff and peers. Patient has made marked improvement during her inpatient stay and indicates today she feels prepared for discharge, denies symptoms of anxiety and depression, denies audiovisual hallucinations, denies urge to engage in self-injurious behavior. Patient is able to verbalize how to safely use sleep medication and anxiolytic medications with child and is not breast-feeding. Patient was instructed not to consume alcohol while taking medications. Patient indicates she has worked out a sleep schedule with her significant other so that significant other will be providing childcare on the nights patient utilizes PRN sleep aid. Patient indicates current medication regimen is effective and she denies medication side effects. Clinical consult was completed with initial prescribing provider regarding patient's discharge on current medication regimen, recommendation was made for patient to continue on benzodiazepine until she sees her outpatient provider on 08/27/16 with plan for patient to taper off benzodiazepine within the next month. Patient is aware she will be following up with outpatient provider to taper off Klonopin once stabilized on antidepressant and has been thoroughly educated on the risks associated with routine/long-term use of benzodiazepine. Patient denies suicidal and homicidal ideation and is able to effectively engage in the safety planning process, verbalizes awareness of how to access supportive services if needed. Family meeting has been completed with patients boyfriend who denies having concerns about patients discharge to home. Patient discharged today to home and to be transported by boyfriend will be receiving follow-up outpatient services through [facility] or psychotherapy and medication management. Patient continues to deny need for outpatient substance abuse treatment, has been encouraged to consider. Of note: EKG was ordered 2 during patients stay and was not completed. Patient has been advised to follow-up with PCM within 5-7 days of discharge for EKG if indicated by PCM. CPS met with patient on 08/07/16 and, per house coordinator, CPS does not intend to open a case and indicated patient requires no further monitoring at this time. MENTAL STATUS EVALUATION ON DISCHARGE: Patient is 36-year-old female who is pleasant and cooperative, makes good eye contact, is easily engaged, displays adequate personal hygiene, ambulates with steady gait, appears stated age. Speech is of normal rate, rhythm, volume, coherent, spontaneous. Language skills are within normal limits. Thought processes including: Clear, goal-directed. Thought content: Logical, rational. Abstract reasoning: Intact. Description of associations: Intact. Description of abnormal or psychotic thoughts: denies hallucinations, delusions , preoccupation with violence, homicidal or suicidal ideation, and obsessions. Judgment: Adequate. Insight: Adequate. Orientation to time, place and person. Recent and remote memory: Immediate, short-term and long-term memory are intact. Attention span and concentration: Good. Language: Normal. Fund of knowledge: Adequate. Mood: "I feel really good, I'm ready to go home, I have none of the negative thinking that I had before and I feel confident about taking care of my children." Patient presents with no indication of depression or anxiety, no mood lability noted Affect: Full range, brightens frequently and appropriately, congruent with mood. CONDITION ON DISCHARGE: Stable, no suicidal or homicidal ideation DISCHARGE DIAGNOSES: Major depressive disorder, onset, rule out anxiety disorder, B12 deficiency MEDICATIONS ON DISCHARGE: See below FOLLOW UP PLAN: Continue Prozac 20 mg po q am, Klonopin 0.5 mg po BID, change trazodone to 100 mg by mouth hs PRN insomnia Patient to be transported home today by boyfriend Patient to follow-up with [facility] for outpatient psychotherapy and medication management services Patient to follow-up with PCM within 5-7 days of discharge TIME SPENT COORDINATING CARE: 45 minutes Vital Signs Vital Sign - Last 24 Hours 08/08/16 08/09/16 18:00 06:39 Temp 97.1 97.1 Pulse 94 98 Resp 16 18 B/P 127/75 110/66 Medications Scheduled Clonazepam (Clonazepam) 0.5 Mg Tab #38 0.5 MG PO BID anxiety Fluoxetine Hcl (Fluoxetine HCl) 20 Mg Cap #7 20 MG PO QAM DEPRESSION Nicotine (Nicotine Transdermal Syst) 21 Mg/24 Hr Dis #14 1 PATCH TD DAILY SMOKING CESSATION Scheduled PRN Albuterol Sulfate (Ventolin Hfa) 200 Puff/8 Gm Aers 2 PUFF INH QID PRN PRN SHORTNESS OF BREATH (Reported) Sodium Chloride (Routt Nasal [place]) 0.65 % Spr 2 SPRAY NA Q4HP PRN PRN nasal dryness (Reported) EACH NOSTRIL Trazodone HCl (Trazodone HCl) 100 Mg Tab #7 100 MG PO QHSP PRN PRN INSOMNIA Allergies Coded Allergies: Erythromycin (Verified Allergy, Severe, face swells,vomits, 09/04/12) Bupropion (Verified Allergy, Unknown, 03/18/15) Debi Garcia Aug 09, 2016 10:28 TIME SPENT: 35 minutes. Vital Signs Vital Sign - Last 24 Hours 08/08/16 08/09/16 18:00 06:39 Temp 97.1 97.1 Pulse 94 98 Resp 16 18 B/P 127/75 110/66 Medications Scheduled Clonazepam (Clonazepam) 0.5 Mg Tab #38 0.5 MG PO BID anxiety Fluoxetine Hcl (Fluoxetine HCl) 20 Mg Cap #7 20 MG PO QAM DEPRESSION Nicotine (Nicotine Transdermal Syst) 21 Mg/24 Hr Dis #14 1 PATCH TD DAILY SMOKING CESSATION Scheduled PRN Albuterol Sulfate (Ventolin Hfa) 200 Puff/8 Gm Aers 2 PUFF INH QID PRN PRN SHORTNESS OF BREATH (Reported) Sodium Chloride (Routt Nasal [place]) 0.65 % Spr 2 SPRAY NA Q4HP PRN PRN nasal dryness (Reported) EACH NOSTRIL Trazodone HCl (Trazodone HCl) 100 Mg Tab #7 100 MG PO QHSP PRN PRN INSOMNIA Allergies Coded Allergies: Erythromycin (Verified Allergy, Severe, face swells,vomits, 09/04/12) Bupropion (Verified Allergy, Unknown, 03/18/15) Debi Garcia Aug 09, 2016 10:28
[2016-08-09] MEDS ORDERED: traZODone 100 MG TAB PO PRN (10:31)
[2016-08-09] MEDS ORDERED: TRAZ10TA PO (10:51)
[2016-08-09] MEDS ORDERED: FLUO20CA9 PO (10:51)
[2016-08-09] MEDS ORDERED: CLON0.5T PO (11:43)
[2016-08-09] MEDS ORDERED: OCEA0.654 (12:01)
== END 2016-08-09 12:15 | disposition home or self-care (01) | DRG 754 ==
LOC: M ED 15:50 → M ED INP 17:56 → M PSY 20:18
PROVIDERS: ADMIT Psychiatry & Neurology Psychiatry; ATTEND Psychiatry & Neurology Psychiatry
DX: F32.9 Major depressive disorder, single episode, unspecified (principal); F41.9 Anxiety disorder, unspecified; F17.210 Nicotine dependence, cigarettes, uncomplicated; F53 Mental and behavioral disorders associated with the puerperium, not elsewhere classified; G47.00 Insomnia, unspecified; R51 Headache; L40.9 Psoriasis, unspecified; E53.8 Deficiency of other specified B group vitamins; Z79.899 Other long term (current) drug therapy; Z88.8 Allergy status to other drugs, medicaments and biological substances; Z90.49 Acquired absence of other specified parts of digestive tract; Z88.1 Allergy status to other antibiotic agents; R03.0 Elevated blood-pressure reading, without diagnosis of hypertension

== ENCOUNTER → 2016-11-02 | Day surgery (SDC) | payer OTHER ==
[~2016-11-02] VITALS: Ht 157.5 cm; Wt 70.3 kg
[~2016-11-02] MED LIST changes: +ACETAMINOPHEN 650 MG SUPP As Ordered ONE; +ACETAMINOPHEN 650 MG SUPP PR ONE; +ALBU17IN INH; +BUPIVACAINE/EPIN 0.25% 30 ML VIAL As Ordered ONE; +BUSP10TA PO; +CLON0.5T PO; +FLUO20CA9 PO; +IBUP80TA PO; +IBUPROFEN 800 MG TAB PO SCH; +IODINE STRONG SOLN 15 ML BTL As Ordered ONE; +KETOROLAC 30 MG/ML VIAL (J1885) IV PRN; +KETOROLAC 60 MG/2 ML VIAL (J1885) As Ordered ONE; +KLON0.5T PO; +KLON1TAB PO; +LIDOCAINE 2% INJ 100 MG/5 ML SDV (FOR ANES.) As Ordered ONE; +LIDOCAINE W/EPINEPHRINE 1% 20ML VIAL As Ordered ONE; +LR 1,000 ML IV ONE; +LR 1,000 ML IV SCH; +METOCLOPRAMIDE INJ 10MG/2ML VIAL (J2765) IV PRN; +MIDAZOLAM INJ 2 MG/2 ML VIAL (J2250) As Ordered ONE; +NICO21PAT TD; +OCEA0.654; +ONDANSETRON 4MG/2ML VIAL (J2405) As Ordered ONE; +ONDANSETRON 4MG/2ML VIAL (J2405) IV PRN; +PERCOCET 5MG/325MG TAB As Ordered ONE; +PERCOCET 5MG/325MG TAB PO PRN; +PROP10TA56 PO; +PROPOFOL 200 MG/20 ML VIAL As Ordered ONE; +PROPOFOL 500 MG/50 ML VIAL As Ordered ONE; +PROZ20CA11 PO; +ROCURONIUM BROMIDE 50 MG/5 ML VIAL As Ordered ONE; +TRAZ10TA PO; +TYLE500T78 PO; +VITA100072 IM; +VITMTA PO; +fentaNYL 100 MCG/2 ML INJECTION (J3010) As Ordered ONE
[2016-11-02 09:07] LABS: MEAN CORPUSCULAR HEMOGLOBIN 31.6 pg (27.0-33.0); MEAN CORPUSCULAR HGB CONC 34.1 g/dl (32.0-36.5); MEAN CORPUSCULAR VOLUME 92.4 fl (80.0-96.0); RED CELL DISTRIBUTION WIDTH 14.8 % (11.5-14.5); WHITE BLOOD COUNT 5.8 K/mm3 (4.0-10.0)
[2016-11-02 09:15] LABS: CONTROL LINE HCG INT CTR LINE PRESENT
[2016-11-02 11:25] VITALS: BP 138/86
--- NOTE | 2016-11-02 21:09 | RO ---
DATE OF PROCEDURE: 11/02/2016 Lucille is a 36-year-old female with extensive history of abnormal Pap smear. She was found to have CHARU II to III on colposcopic guided biopsy. After counseling in the office a decision was made for loop electrosurgical excision procedure (LEEP). conization of the cervix and endocervical curettage (ECC). 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 PROCEDURE: 1. LEEP conization of the cervix. 2. ECC. 3. Paracervical block. SURGEON: Yonathan Dillard DO SHIPPING SUPPORT: ANESTHESIA: Local sedation with a paracervical block. ESTIMATED BLOOD LOSS: 20 mL. COMPLICATIONS: None. PROCEDURE: After obtaining informed consent, the patient was taken to the operating room. Under conscious sedation cervix was then cleaned with normal saline. 1% lidocaine was used for paracervical block. A coated speculum was placed in the vagina. The cervix was then bathed and Lugol's solution to highlight the abnormal areas. The abnormal areas were found. After performing the paracervical block, a 20 x 8 mm loop was used. The abnormal areas were removed in several segments to preserve the string of an IUD the patient had in place. We then also performed an endocervical curetting. At this point using a 10 mm ball cautery the crater of the biopsy was then coagulated. Monsel solution was placed for good hemostasis. Excellent hemostasis noted. The patient tolerated the procedure well. She was then transferred to recovery room in stable condition.
== END | disposition home or self-care (01) ==
LOC: M SDC 08:32
PROVIDERS: ATTEND Obstetrics & Gynecology
DX: D06.9 Carcinoma in situ of cervix, unspecified (principal); I34.1 Nonrheumatic mitral (valve) prolapse; E53.9 Vitamin B deficiency, unspecified; F41.9 Anxiety disorder, unspecified; F32.9 Major depressive disorder, single episode, unspecified; R93.0 Abnormal findings on diagnostic imaging of skull and head, not elsewhere classified; R06.83 Snoring; F17.210 Nicotine dependence, cigarettes, uncomplicated; Z88.1 Allergy status to other antibiotic agents; Z79.899 Other long term (current) drug therapy; Z97.5 Presence of (intrauterine) contraceptive device; Z86.19 Personal history of other infectious and parasitic diseases

== ENCOUNTER 2017-03-29 17:54 | Emergency (ER) | payer OTHER ==
[~2017-03-29] VITALS: Ht 157.5 cm; Wt 77.3 kg
[~2017-03-29 17:54] MED LIST changes: -ACETAMINOPHEN 650 MG SUPP As Ordered ONE; -ACETAMINOPHEN 650 MG SUPP PR ONE; -BUPIVACAINE/EPIN 0.25% 30 ML VIAL As Ordered ONE; -CELE-19 PO; +CELE1CAP4 PO; +FLUO20CA19 PO; -FLUO20CA9 PO; +IBUP-1022 PO; -IBUP600T26 PO; -IBUPROFEN 800 MG TAB PO SCH; -IODINE STRONG SOLN 15 ML BTL As Ordered ONE; -KETOROLAC 30 MG/ML VIAL (J1885) IV PRN; -KETOROLAC 60 MG/2 ML VIAL (J1885) As Ordered ONE; -LIDOCAINE 2% INJ 100 MG/5 ML SDV (FOR ANES.) As Ordered ONE; -LIDOCAINE W/EPINEPHRINE 1% 20ML VIAL As Ordered ONE; -LR 1,000 ML IV ONE; -LR 1,000 ML IV SCH; -METOCLOPRAMIDE INJ 10MG/2ML VIAL (J2765) IV PRN; -MIDAZOLAM INJ 2 MG/2 ML VIAL (J2250) As Ordered ONE; -ONDANSETRON 4MG/2ML VIAL (J2405) As Ordered ONE; -ONDANSETRON 4MG/2ML VIAL (J2405) IV PRN; -PERCOCET 5MG/325MG TAB As Ordered ONE; -PERCOCET 5MG/325MG TAB PO PRN; -PROPOFOL 200 MG/20 ML VIAL As Ordered ONE; -PROPOFOL 500 MG/50 ML VIAL As Ordered ONE; -ROCURONIUM BROMIDE 50 MG/5 ML VIAL As Ordered ONE; -fentaNYL 100 MCG/2 ML INJECTION (J3010) As Ordered ONE
[2017-03-29] MEDS ORDERED: NS 1,000 ML IV ONE (21:15)
[2017-03-29] MEDS ORDERED: PANTOPRAZOLE 40MG TAB (PROTONIX) PO ONE (21:15)
[2017-03-29] MEDS ORDERED: MORPHINE 2 MG/ML 1ML SYRINGE IV PRN (21:15)
[2017-03-29] MEDS ORDERED: METOCLOPRAMIDE INJ 10MG/2ML VIAL (J2765) IV ONE (21:15)
[2017-03-29 21:56] LABS: CALCIUM OXALATE CRYSTALS SMALL
[2017-03-29 21:58] LABS: BASO % 0.9 % (0.0-1.0); EOS # 0.1 10^3/uL (0.0-0.50); EOS % 2.1 % (0.0-3.0); IMMATURE GRANULOCYTE % 0.5 % (0-0); LYMPH # 1.9 10^3/uL (1.5-4.5); LYMPH % 43.8 % (24.0-44.0); MEAN CORPUSCULAR HEMOGLOBIN 34.8 pg (27.0-33.0); MEAN CORPUSCULAR HGB CONC 36.4 g/dl (32.0-36.5); MEAN CORPUSCULAR VOLUME 95.5 fl (80.0-96.0); MONO # 0.5 10^3/uL (0.0-0.8); MONO % 11.3 % (0.0-5.0); NEUTROPHILS # 1.8 10^3/uL (1.8-7.7); NEUTROPHILS % 41.4 % (36.0-66.0); RED CELL DISTRIBUTION WIDTH 13.6 % (11.5-14.5); WHITE BLOOD COUNT 4.3 10^3/uL (4.0-10.0)
[2017-03-29 22:12] LABS: PLATELET COUNT, AUTOMATED 78 10^3/uL (150-450)
[2017-03-29 22:13] LABS: IMMATURE PLATELET FRACTION % 5.8 % (0.0-9.6)
[2017-03-29 22:15] LABS: ALBUMIN 3.7 GM/DL (3.2-5.2); ALBUMIN/GLOBULIN RATIO 1.06 (1.00-1.93); ALKALINE PHOSPHATASE 213 U/L (45-117); ALT/SGPT 165 U/L (12-78); AMYLASE 33 U/L (25-115); ANION GAP 10 MEQ/L (8-16); AST/SGOT 747 U/L (7-37); BILIRUBIN,DIRECT 0.4 MG/DL (0.0-0.2); BILIRUBIN,TOTAL 0.8 MG/DL (0.2-1.0); BLOOD UREA NITROGEN 5 MG/DL (7-18); CALCIUM LEVEL 8.9 MG/DL (8.5-10.1); CARBON DIOXIDE LEVEL 26 MEQ/L (21-32); CHLORIDE LEVEL 104 MEQ/L (98-107); CREATININE FOR GFR 0.65 MG/DL (0.55-1.02); GLOMERULAR FILTRATION RATE > 60.0 (>60); GLUCOSE, FASTING 85 MG/DL (70-105); POTASSIUM SERUM 3.6 MEQ/L (3.5-5.1); SODIUM LEVEL 140 MEQ/L (136-145); TOTAL PROTEIN 7.2 GM/DL (6.4-8.2)
[2017-03-29 22:21] LABS: CONTROL LINE UCG INT CTR LINE PRESENT
--- NOTE | 2017-03-30 | REPUSA ---
Clinical history: elevated liver function tests. Findings: The pancreas is limited in visualization secondary to overlying bowel gas, but appears neil sly unremarkable. The liver demonstrates increased echotexture and echogenicity, with no mass lesions . The gallbladder is unremarkable. The common bile duct measures 3 mm and is within normal limits. Th e right kidney measures 11.8 cm in length and is unremarkable. There is no ascites. Impression: 1. Fatty infiltration of the liver.
[2017-03-30] MEDS ORDERED: ZOFR4TAB3 PO (00:36)
[2017-03-30] MEDS ORDERED: CIPR-249 PO (00:39)
[2017-03-30 01:05] VITALS: BP 154/104
== END 2017-03-30 01:07 | disposition home or self-care (01) ==
LOC: M ED 17:54
DX: N39.0 Urinary tract infection, site not specified (principal); R79.89 Other specified abnormal findings of blood chemistry; K50.90 Crohn's disease, unspecified, without complications
CPT/HCPCS: 76705; 80048; 80076; 81001; 82150; 83605; 83690; 84703; 85025; 85049; 85055; 85610; 86705; 86709; 86803; 87088; 87186; 87340; 96374; 96375; 99284; J2765

== ENCOUNTER 2017-08-20 18:04 | Emergency (ER) | payer OTHER ==
[2017-08-20] MEDS: NS 1,000 ML IV ×2 (18:45→22:39)
[2017-08-20 19:44] LABS: VENOUS BASE EXCESS -1.1 (-2.0-2.0); VENOUS HCO3 21.8 MEQ/L (23.0-27.0); VENOUS O2 SATURATION 93.6 % (60.0-80.0); VENOUS PARTIAL PRESSURE CO2 31.9 mmHg (38.0-50.0); VENOUS PARTIAL PRESSURE O2 65.9 mmHg (30.0-50.0); VENOUS PH 7.452 UNITS (7.330-7.430); VENOUS STANDARD HCO3 23.5 MEQ/L; VENOUS TOTAL CO2 22.8 MEQ/L (24.0-28.0)
[2017-08-20 19:48] LABS: BASO % 0.7 % (0.0-1.0); EOS # 0.1 10^3/uL (0.0-0.50); EOS % 1.4 % (0.0-3.0); HEMATOCRIT 42.9 % (36.0-47.0); HEMOGLOBIN 15.3 g/dl (12.0-16.0); IMMATURE GRANULOCYTE % 0.2 % (0-3.0); LYMPH # 2.1 10^3/uL (1.5-4.5); LYMPH % 35.5 % (24.0-44.0); MEAN CORPUSCULAR HEMOGLOBIN 36.5 pg (27.0-33.0); MEAN CORPUSCULAR HGB CONC 35.7 g/dl (32.0-36.5); MEAN CORPUSCULAR VOLUME 102.4 fl (80.0-96.0); MONO # 0.5 10^3/uL (0.0-0.8); NEUTROPHILS # 3.1 10^3/uL (1.8-7.7); NEUTROPHILS % 53.2 % (36.0-66.0); PLATELET COUNT, AUTOMATED 125 10^3/uL (150-450); RED BLOOD COUNT 4.19 10^6/uL (4.00-5.40); RED CELL DISTRIBUTION WIDTH 14.9 % (11.5-14.5); WHITE BLOOD COUNT 5.9 10^3/uL (4.0-10.0)
[2017-08-20] MEDS: PROMETHAZINE INJ 25 MG/ML VIAL (J2550) IV (19:51)
[2017-08-20] MEDS: OXAZEPAM 15 MG CAP PO (19:51)
[2017-08-20 20:05] LABS: CONTROL LINE HCG INT CTR LINE PRESENT; HCG, SERUM QUALITATIVE NEGATIVE (NEGATIVE)
[2017-08-20 20:17] LABS: ACETAMINOPHEN LEVEL < 2.0 UG/ML (10.0-30.0); ALBUMIN 3.6 GM/DL (3.2-5.2); ALBUMIN/GLOBULIN RATIO 0.97 (1.00-1.93); ALKALINE PHOSPHATASE 248 U/L (45-117); ALT/SGPT 83 U/L (12-78); ANION GAP 17 MEQ/L (8-16); AST/SGOT 525 U/L (7-37); BILIRUBIN,DIRECT 1.9 MG/DL (0.0-0.2); BILIRUBIN,TOTAL 2.7 MG/DL (0.2-1.0); BLOOD UREA NITROGEN 4 MG/DL (7-18); CALCIUM LEVEL 8.7 MG/DL (8.5-10.1); CARBON DIOXIDE LEVEL 22 MEQ/L (21-32); CHLORIDE LEVEL 102 MEQ/L (98-107); CPK CREATINE PHOSPHOKINASE 91 U/L (26-192); ETHYL ALCOHOL (ETHANOL) 0.062 % (0.000-0.010); GLOMERULAR FILTRATION RATE > 60.0 (>60); GLUCOSE, FASTING 81 MG/DL (70-100); LIPASE 96 U/L (73-393); POTASSIUM SERUM 3.3 MEQ/L (3.5-5.1); SODIUM LEVEL 141 MEQ/L (136-145); TOTAL PROTEIN 7.3 GM/DL (6.4-8.2); TROPONIN I < 0.02 NG/ML (< 0.10)
[2017-08-20 20:25] LABS: OSMOLALITY SERUM 303 MOSM/KG (275-295)
[2017-08-20 20:28] LABS: MB/CK RELATIVE INDEX 1.09 (< OR =4); SALICYLATE LEVEL < 1.7 MG/DL (5.0-30.0)
[2017-08-20] MEDS ORDERED: ISOVUE-370 76% 100ML VIAL (Q9967) As Ordered (20:47)
[2017-08-20] MEDS ORDERED: ONDANSETRON 4MG/2ML VIAL (J2405) As Ordered (21:18)
[2017-08-20] MEDS: ONDANSETRON 4MG/2ML VIAL (J2405) IV (21:30)
[2017-08-20] MEDS: KETOROLAC 30 MG/ML VIAL (J1885) IV (21:35)
[2017-08-20] MEDS: POTASSIUM CHLORIDE 10 MEQ SR TABLET PO (21:55)
[2017-08-20 22:17] LABS: AMPHETAMINES LEVEL URINE NEGATIVE (NEGATIVE); BARBITURATES URINE NEGATIVE (NEGATIVE); BENZODIAZEPINES URINE POSITIVE (NEGATIVE); CANNABINOIDS URINE NEGATIVE (NEGATIVE); COCAINE METABOLITE URINE NEGATIVE (NEGATIVE); METHADONE URINE NEGATIVE (NEGATIVE); OPIATES URINE NEGATIVE (NEGATIVE); PHENCYCLIDINE URINE NEGATIVE (NEGATIVE)
== END 2017-08-21 00:36 | disposition home or self-care (01) ==
LOC: M ED 08-21 00:36
DX: F10.10 Alcohol abuse, uncomplicated (principal); R79.89 Other specified abnormal findings of blood chemistry; K76.0 Fatty (change of) liver, not elsewhere classified; R10.11 Right upper quadrant pain; R07.9 Chest pain, unspecified; Z88.1 Allergy status to other antibiotic agents; Z88.8 Allergy status to other drugs, medicaments and biological substances; Z79.899 Other long term (current) drug therapy
CPT/HCPCS: J2405

== ENCOUNTER → 2017-09-05 | Outpatient (REF) | payer OTHER ==
[2017-09-05 18:14] LABS: APPEARANCE, URINE HAZY (CLEAR); BACTERIA, URINE AUTO NEGATIVE (NEGATIVE); BILIRUBIN, URINE AUTO NEGATIVE (NEGATIVE); BLOOD, URINE BLOOD NEGATIVE (NEGATIVE); COLOR, URINE YELLOW (YELLOW); GLUCOSE, URINE (UA) AUTO NEGATIVE (NEGATIVE); KETONE, URINE AUTO NEGATIVE (NEGATIVE); LEUKOCYTE ESTERASE, URINE AUTO NEGATIVE (NEGATIVE); MUCUS, URINE SMALL (NEGATIVE); NITRITE, URINE AUTO NEGATIVE (NEGATIVE); PROTEIN, URINE AUTO NEGATIVE (NEGATIVE); RBC, URINE AUTO 1 /HPF (0-3); SPECIFIC GRAVITY URINE AUTO 1.024 (1.002-1.035); SQUAMOUS EPITHELIAL CELL UR AU 3 /HPF (0-6); UROBILINOGEN, URINE AUTO 0.2 mg/dL (0.0-2.0); WBC, URINE AUTO 4 /HPF (0-3)
== END ==
LOC: M LAB REF 16:46
DX: N39.0 Urinary tract infection, site not specified (principal)

== ENCOUNTER → 2017-09-19 | Outpatient (CLI) | payer OTHER | LOC: M RAD 06:54 | DX: N20.0 Calculus of kidney (principal); R93.5 Abnormal findings on diagnostic imaging of other abdominal regions, including retroperitoneum | CPT/HCPCS: 74176 ==

== ENCOUNTER → 2017-10-21 | Outpatient (CLI) | payer MEDICAID | LOC: M OUTALCOH 11:57 | DX: F10.20 Alcohol dependence, uncomplicated (principal) ==

== ENCOUNTER 2017-12-12 08:53 | Emergency (ER) | payer OTHER, MEDICAID ==
[2017-12-12] MEDS: AUGMENTIN 875 MG TAB PO (09:46)
[2017-12-12] MEDS: NORCO, ANEXSIA 5/325MG TABLET (HYDROcodone/ACETAMINOPHEN) PO (09:47)
== END 2017-12-12 09:52 | disposition home or self-care (01) ==
LOC: M ED 08:53
DX: K04.7 Periapical abscess without sinus (principal); K02.9 Dental caries, unspecified; R22.0 Localized swelling, mass and lump, head; M54.5 Low back pain; K50.90 Crohn's disease, unspecified, without complications; F17.210 Nicotine dependence, cigarettes, uncomplicated; Z88.1 Allergy status to other antibiotic agents; Z88.8 Allergy status to other drugs, medicaments and biological substances; Z79.899 Other long term (current) drug therapy
CPT/HCPCS: 41800

== ENCOUNTER → 2017-12-30 | Outpatient (CLI) | payer MEDICAID | LOC: M OUTALCOH 08:19 | DX: Z13.9 Encounter for screening, unspecified (principal); F10.20 Alcohol dependence, uncomplicated ==

== ENCOUNTER 2018-02-04 16:00 | Outpatient (RCR) | payer MEDICAID | END 2018-03-02 | LOC: M OUTALCOH 02-10 14:00 | DX: F10.20 Alcohol dependence, uncomplicated (principal); F17.200 Nicotine dependence, unspecified, uncomplicated ==

== ENCOUNTER 2018-03-03 10:13 | Outpatient (RCR) | payer MEDICAID | END 2018-04-02 | LOC: M OUTALCOH 03-04 16:00 | DX: F10.20 Alcohol dependence, uncomplicated (principal); F17.200 Nicotine dependence, unspecified, uncomplicated ==

== ENCOUNTER → 2018-04-08 | Outpatient (CLI) | payer MEDICAID | LOC: M RAD 10:54 | DX: M25.561 Pain in right knee (principal); M79.671 Pain in right foot | CPT/HCPCS: 73564 ==

== ENCOUNTER 2018-04-10 13:13 | Outpatient (RCR) | payer MEDICAID | END 2018-05-02 | LOC: M OUTALCOH 13:13 | DX: F10.20 Alcohol dependence, uncomplicated (principal); F17.200 Nicotine dependence, unspecified, uncomplicated ==

== ENCOUNTER 2018-05-23 11:00 | Outpatient (RCR) | payer MEDICAID ==
[~2018-05-23 11:00] MED LIST changes: +ACET500T15 PO; -ACET50TA PO; -ACET50TAOT PO; +AUGM875T28 PO; +CIPR-249 PO; -CLON0.5T PO; +CLON0.5T8 PO; +HYDR-3363 PO; +MAPA500T2 PO; +NORCOTAB PO; +OXAZ30CA2 PO; +ZOFR4TAB14 PO
== END 2018-06-02 ==
LOC: M OUTALCOH 11:00
PROVIDERS: ATTEND Psychiatry & Neurology Psychiatry
DX: F10.20 Alcohol dependence, uncomplicated (principal); F17.200 Nicotine dependence, unspecified, uncomplicated

== ENCOUNTER 2018-06-10 11:00 | Outpatient (RCR) | payer MEDICAID ==
[2018-06-12] MEDS ORDERED: PAXI20TA29 PO (15:22)
[2018-06-12] MEDS ORDERED: HYDR-3363 PO (15:23)
== END 2018-07-03 ==
LOC: M OUTALCOH 11:00
PROVIDERS: ATTEND Psychiatry & Neurology Psychiatry
DX: F10.20 Alcohol dependence, uncomplicated (principal); F17.200 Nicotine dependence, unspecified, uncomplicated

== ENCOUNTER 2018-06-30 16:00 | Outpatient (RCR) | payer MEDICAID ==
[~2018-06-30 16:00] MED LIST changes: +PAXI20TA29 PO
== END 2018-07-03 ==
LOC: M OUTALCOH 16:00
PROVIDERS: ATTEND Psychiatry & Neurology Psychiatry
DX: F10.20 Alcohol dependence, uncomplicated (principal); F17.200 Nicotine dependence, unspecified, uncomplicated

== ENCOUNTER 2018-07-28 16:00 | Outpatient (RCR) | payer MEDICAID | END 2018-07-31 | LOC: M OUTALCOH 16:00 | PROVIDERS: ATTEND Psychiatry & Neurology Psychiatry | DX: F10.20 Alcohol dependence, uncomplicated (principal); F17.200 Nicotine dependence, unspecified, uncomplicated ==

== ENCOUNTER 2018-08-25 16:00 | Outpatient (RCR) | payer OTHER | END 2018-08-31 | LOC: M OUTALCOH 16:00 | PROVIDERS: ATTEND Psychiatry & Neurology Psychiatry | DX: F10.20 Alcohol dependence, uncomplicated (principal); F17.200 Nicotine dependence, unspecified, uncomplicated ==

== ENCOUNTER → 2018-09-12 | Outpatient (REF) | payer MEDICAID ==
[~2018-09-12] MED LIST changes: +HYDR-3715 PO; -NORCOTAB PO; +VITA100018 IM; -VITA100072 IM
[2018-09-12 17:13] LABS: APPEARANCE, URINE HAZY (CLEAR); BACTERIA, URINE AUTO NEGATIVE (NEGATIVE); BILIRUBIN, URINE AUTO NEGATIVE (NEGATIVE); BLOOD, URINE BLOOD NEGATIVE (NEGATIVE); COLOR, URINE YELLOW (YELLOW); GLUCOSE, URINE (UA) AUTO NEGATIVE (NEGATIVE); KETONE, URINE AUTO TRACE mg/dL (NEGATIVE); LEUKOCYTE ESTERASE, URINE AUTO NEGATIVE (NEGATIVE); NITRITE, URINE AUTO NEGATIVE (NEGATIVE); PROTEIN, URINE AUTO NEGATIVE (NEGATIVE); RBC, URINE AUTO 0 /HPF (0-3); SPECIFIC GRAVITY URINE AUTO 1.012 (1.002-1.035); SQUAMOUS EPITHELIAL CELL UR AU 9 /HPF (0-6); UROBILINOGEN, URINE AUTO 0.2 mg/dL (0.0-2.0); WBC, URINE AUTO 2 /HPF (0-3)
== END ==
LOC: M LAB REF 16:40
PROVIDERS: ATTEND Physician Assistant
DX: N39.0 Urinary tract infection, site not specified (principal)

== ENCOUNTER 2018-09-23 14:35 | Outpatient (RCR) | payer MEDICAID | END 2018-09-30 | LOC: M OUTALCOH 14:35 | PROVIDERS: ATTEND Psychiatry & Neurology Psychiatry | DX: F10.20 Alcohol dependence, uncomplicated (principal); F17.200 Nicotine dependence, unspecified, uncomplicated ==

== ENCOUNTER → 2018-10-09 | Outpatient (REF) | payer MEDICAID ==
[2018-10-09 21:50] LABS: BASO % 0.5 % (0.0-1.0); EOS # 0.1 10^3/uL (0.0-0.50); EOS % 1.3 % (0.0-3.0); HEMATOCRIT 47.4 % (36.0-47.0); HEMOGLOBIN 15.8 g/dl (12.0-15.5); LYMPH # 1.9 10^3/uL (1.5-4.5); LYMPH % 30.2 % (24.0-44.0); MEAN CORPUSCULAR HEMOGLOBIN 31.9 pg (27.0-33.0); MEAN CORPUSCULAR HGB CONC 33.3 g/dl (32.0-36.5); MEAN CORPUSCULAR VOLUME 95.8 fl (80.0-96.0); MONO # 0.6 10^3/uL (0.0-0.8); MONO % 8.9 % (0.0-5.0); NEUTROPHILS # 3.7 10^3/uL (1.8-7.7); NEUTROPHILS % 58.8 % (36.0-66.0); PLATELET COUNT, AUTOMATED 128 10^3/uL (150-450); RED BLOOD COUNT 4.95 10^6/uL (4.00-5.40); WHITE BLOOD COUNT 6.2 10^3/uL (4.0-10.0)
[2018-10-09 21:56] LABS: AMORPHOUS SEDIMENT SMALL (NEGATIVE); APPEARANCE, URINE CLOUDY (CLEAR); BACTERIA, URINE AUTO NEGATIVE (NEGATIVE); BILIRUBIN, URINE AUTO NEGATIVE (NEGATIVE); BLOOD, URINE BLOOD NEGATIVE (NEGATIVE); COLOR, URINE YELLOW (YELLOW); GLUCOSE, URINE (UA) AUTO NEGATIVE (NEGATIVE); KETONE, URINE AUTO TRACE mg/dL (NEGATIVE); LEUKOCYTE ESTERASE, URINE AUTO NEGATIVE (NEGATIVE); NITRITE, URINE AUTO NEGATIVE (NEGATIVE); PROTEIN, URINE AUTO NEGATIVE (NEGATIVE); RBC, URINE AUTO 1 /HPF (0-3); SPECIFIC GRAVITY URINE AUTO 1.017 (1.002-1.035); SQUAMOUS EPITHELIAL CELL UR AU 29 /HPF (0-6); UROBILINOGEN, URINE AUTO 0.2 mg/dL (0.0-2.0); WBC, URINE AUTO 0 /HPF (0-3)
[2018-10-09 22:15] LABS: ALT/SGPT 29 U/L (12-78); BILIRUBIN,TOTAL 0.7 MG/DL (0.2-1.0); BLOOD UREA NITROGEN 9 MG/DL (7-18); CALCIUM LEVEL 9.1 MG/DL (8.5-10.1); CARBON DIOXIDE LEVEL 23 MEQ/L (21-32); CHLORIDE LEVEL 106 MEQ/L (98-107); CREATININE FOR GFR 0.77 MG/DL (0.55-1.30); GLOMERULAR FILTRATION RATE > 60.0 (>60); GLUCOSE, FASTING 83 MG/DL (70-100); IRON (FE) 61 UG/DL (50-170); POTASSIUM SERUM 3.8 MEQ/L (3.5-5.1); SODIUM LEVEL 139 MEQ/L (136-145)
[2018-10-09 22:18] LABS: VITAMIN B12 LEVEL 482 PG/ML (247-911)
== END ==
LOC: M LAB REF 08:44
PROVIDERS: ATTEND Physician Assistant
DX: N39.0 Urinary tract infection, site not specified (principal)

== ENCOUNTER → 2018-10-31 | Outpatient (RCR) | payer MEDICAID | LOC: M OUTALCOH 10-10 15:34 | PROVIDERS: ATTEND Psychiatry & Neurology Psychiatry | DX: F10.20 Alcohol dependence, uncomplicated (principal); F17.200 Nicotine dependence, unspecified, uncomplicated ==

== ENCOUNTER → 2018-12-29 | Outpatient (CLI) | payer MEDICAID ==
--- NOTE | 2018-12-29 16:01 | REP ---
Clinical: Chronic cough . Comparison: 04/29/2018 . Technique: PA and lateral. Findings: The mediastinum and cardiac silhouette are normal. The lung delaney are clear and without acute consolidation, effusion, or pneumothorax. The skeletal structures are intact and normal. Impression: 1. No acute cardiopulmonary process. Electronically Signed by Juan Barton MD 12/29/2018 03:53 P
== END ==
LOC: M WUC 15:25
PROVIDERS: ATTEND Nurse Practitioner Family
DX: J06.9 Acute upper respiratory infection, unspecified (principal)

== ENCOUNTER 2019-02-14 00:33 | Emergency (ER) | payer MEDICAID, OTHER ==
[~2019-02-14] VITALS: Ht 157.5 cm; Wt 78.6 kg
[~2019-02-14 00:33] MED LIST changes: +CHOL100029 PO; -VITAD1000T PO
[2019-02-14 01:09] LABS: BASO % 0.6 % (0.0-1.0); EOS # 0.2 10^3/uL (0.0-0.5); EOS % 2.8 % (0.0-3.0); HEMATOCRIT 48.4 % (36.0-47.0); LYMPH # 2.8 10^3/uL (1.5-5.0); LYMPH % 43.7 % (24.0-44.0); MEAN CORPUSCULAR HEMOGLOBIN 35.5 pg (27.0-33.0); MEAN CORPUSCULAR HGB CONC 35.1 g/dl (32.0-36.5); MONO # 0.6 10^3/uL (0.0-0.8); NEUTROPHILS # 2.7 10^3/uL (1.5-8.5); NEUTROPHILS % 42.7 % (36.0-66.0); PLATELET COUNT, AUTOMATED 145 10^3/uL (150-450); RED BLOOD COUNT 4.79 10^6/uL (4.00-5.40); WHITE BLOOD COUNT 6.4 10^3/uL (4.0-10.0)
[2019-02-14] MEDS ORDERED: IPRATROPIUM 0.5MG/ALBUTEROL 2.5MG INH SOL UD 3ML (DUONEB)(J7620) NEB ONE (01:30)
[2019-02-14] MEDS ORDERED: KETOROLAC 30 MG/ML VIAL (J1885) IV ONE (01:30)
[2019-02-14] MEDS ORDERED: NS 1,000 ML IV ONE (01:30)
[2019-02-14 01:41] LABS: BLOOD UREA NITROGEN 8 MG/DL (7-18); CALCIUM LEVEL 9.1 MG/DL (8.5-10.1); CARBON DIOXIDE LEVEL 20 MEQ/L (21-32); CHLORIDE LEVEL 105 MEQ/L (98-107); CK-MB VALUE MASS < 1.0 NG/ML (<3.6); CPK CREATINE PHOSPHOKINASE 50 U/L (26-192); CREATININE FOR GFR 0.62 MG/DL (0.55-1.30); GLOMERULAR FILTRATION RATE > 60.0 (>60); GLUCOSE, FASTING 83 MG/DL (70-100); POTASSIUM SERUM 3.6 MEQ/L (3.5-5.1); SODIUM LEVEL 138 MEQ/L (136-145); TROPONIN I < 0.02 NG/ML (< 0.10)
[2019-02-14 01:49] LABS: MONO SCRN NEGATIVE (NEGATIVE)
[2019-02-14 06:00] VITALS: BP 148/95
--- NOTE | 2019-02-14 06:08 | ECGEPIP ---
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
--- NOTE | 2019-02-14 09:43 | REP ---
REASON: Chest pain. COMPARISON: 12/29/2018 The technique utilized in obtaining the radiograph has magnified the cardiac silhouette and accentuated the interstitial markings. The cardiomediastinal silhouette and lung delaney are unchanged. Note is again made of a right-sided aortic arch. The lung delaney are clear. The pleural angles are sharp. The osseous structures are stable and intact. IMPRESSION: No acute cardiopulmonary disease. Anomalous right-sided aortic arch. Electronically Signed by Fox Dominique DO 02/14/2019 09:49 A
--- NOTE | 2019-02-17 12:28 | ED PDOC ---
Post-Departure Follow-Up neri fagan faxed formal report of cxr for fu eleazarg Tomas Garcia MD Feb 17, 2019 12:28
== END 2019-02-14 07:03 | disposition home or self-care (01) ==
LOC: M ED 00:33
DX: J06.9 Acute upper respiratory infection, unspecified (principal); Z79.899 Other long term (current) drug therapy; Z88.1 Allergy status to other antibiotic agents; Z88.8 Allergy status to other drugs, medicaments and biological substances; F17.210 Nicotine dependence, cigarettes, uncomplicated
CPT/HCPCS: 71045; 80048; 82550; 82553; 85025; 86308; 87486; 87581; 87633; 87798; 93005; 93041; 94640; 94760; 96361; 96374; 99285; J1885

== ENCOUNTER 2019-08-05 11:40 | Emergency (ER) | payer OTHER ==
[~2019-08-05] VITALS: Ht 157.5 cm; Wt 91.0 kg
[~2019-08-05 11:40] MED LIST changes: +CLON0.5T2 PO; -CLON0.5T8 PO; -FLUO20CA19 PO; +FLUO20CA22 PO; -TRAZ10TA PO; +TRAZ1TAB12 PO
[2019-08-05] MEDS ORDERED: PROP60TA14 PO (11:48)
[2019-08-05 13:01] LABS: BASO # 0.1 10^3/uL (0.0-0.2); BASO % 0.4 % (0.0-1.0); EOS # 0.1 10^3/uL (0.0-0.5); EOS % 0.9 % (0.0-3.0); HEMATOCRIT 50.7 % (36.0-47.0); HEMOGLOBIN 17.3 g/dl (12.0-15.5); LYMPH # 1.6 10^3/uL (1.5-5.0); LYMPH % 13.4 % (24.0-44.0); MEAN CORPUSCULAR HEMOGLOBIN 34.5 pg (27.0-33.0); MEAN CORPUSCULAR HGB CONC 34.1 g/dl (32.0-36.5); MEAN CORPUSCULAR VOLUME 101.2 fl (80.0-96.0); MONO # 1.1 10^3/uL (0.0-0.8); MONO % 9.3 % (0.0-5.0); NEUTROPHILS # 9.1 10^3/uL (1.5-8.5); NEUTROPHILS % 75.6 % (36.0-66.0); PLATELET COUNT, AUTOMATED 168 10^3/uL (150-450); RED BLOOD COUNT 5.01 10^6/uL (4.00-5.40)
[2019-08-05 13:11] LABS: APPEARANCE, URINE CLOUDY (CLEAR); BACTERIA, URINE AUTO 2+ (NEGATIVE); BILIRUBIN, URINE AUTO NEGATIVE (NEGATIVE); BLOOD, URINE BLOOD 2+ (NEGATIVE); COLOR, URINE AMBER (YELLOW); GLUCOSE, URINE (UA) AUTO NEGATIVE (NEGATIVE); KETONE, URINE AUTO NEGATIVE (NEGATIVE); LEUKOCYTE ESTERASE, URINE AUTO 3+ (NEGATIVE); MUCUS, URINE SMALL (NEGATIVE); NITRITE, URINE AUTO POSITIVE (NEGATIVE); PROTEIN, URINE AUTO 2+ mg/dL (NEGATIVE); RBC, URINE AUTO 19 /HPF (0-3); SPECIFIC GRAVITY URINE AUTO 1.009 (1.002-1.035); SQUAMOUS EPITHELIAL CELL UR AU 20 /HPF (0-6); UROBILINOGEN, URINE AUTO 0.2 mg/dL (0.0-2.0); WBC, URINE AUTO TNTC /HPF (0-3)
[2019-08-05 13:29] LABS: HCG, SERUM QUALITATIVE NEGATIVE (NEGATIVE)
[2019-08-05 13:31] LABS: ALBUMIN 3.4 GM/DL (3.2-5.2); ALT/SGPT 83 U/L (12-78); BILIRUBIN,DIRECT 0.3 MG/DL (0.0-0.2); BILIRUBIN,TOTAL 0.9 MG/DL (0.2-1.0); BLOOD UREA NITROGEN 2 MG/DL (7-18); CALCIUM LEVEL 9.2 MG/DL (8.5-10.1); CARBON DIOXIDE LEVEL 27 MEQ/L (21-32); CHLORIDE LEVEL 103 MEQ/L (98-107); CREATININE FOR GFR 0.58 MG/DL (0.55-1.30); GLOMERULAR FILTRATION RATE > 60.0 (>60); GLUCOSE, FASTING 103 MG/DL (70-100); LIPASE 50 U/L (73-393); POTASSIUM SERUM 3.9 MEQ/L (3.5-5.1); SODIUM LEVEL 138 MEQ/L (136-145); TOTAL PROTEIN 6.8 GM/DL (6.4-8.2)
[2019-08-05] MEDS ORDERED: KETOROLAC 30 MG/ML VIAL (J1885) IV ONE (15:15)
[2019-08-05] MEDS ORDERED: ONDANSETRON 4MG/2ML VIAL (J2405) IV ONE ×2 (15:15→16:30)
--- NOTE | 2019-08-05 15:33 | REP ---
CT abdomen and pelvis without IV or oral contrast: Renal stone protocol. History: Right flank pain. Comparison study: September 19, 2017. Findings: Preliminary digital crossword puzzle maker radiograph demonstrates clips in right upper quadrant of the abdomen. Bowel gas pattern is unremarkable. The lung bases are clear. Liver is rather prominent with a craniocaudal span in the midclavicular line of 19 cm. This is unchanged from the prior study. No liver mass lesion is seen. There is a tiny cyst versus hemangioma in the right lobe near the dome of the diaphragm. Otherwise the liver remains homogeneous. No adrenal lesion is seen. No splenic abnormality is noted. The spleen is not felt to be enlarged. No abnormality is visible in the pancreas. Gallbladder is surgically absent. No retroperitoneal mass or adenopathy is seen. No urinary tract calculus or hydronephrosis is apparent. A small cyst is seen in the lower pole of the right kidney. This measures 1.6 cm in diameter. An IUD is noted in good position in the uterus. No uterine or adnexal abnormality is seen. Urinary bladder is unremarkable. There is submucosal fat fairly extensively in the right colon and proximal transverse colon as previously noted. This can be seen in patients with prior history of inflammatory bowel disease. Small and large bowel loops are otherwise unremarkable. Impression: 1.6 cm cyst in the lower pole of the right kidney, submucosal fat in the right colon, question old inflammatory bowel disease. Post cholecystectomy. Hepatomegaly, unchanged . Otherwise negative. Electronically Signed by Migel Cardona MD 08/05/2019 05:10 P
[2019-08-05] MEDS ORDERED: MORPHINE 4 MG/ML 1ML VIAL/SYRINGE (J2270) IV ONE (16:30)
[2019-08-05] MEDS ORDERED: cefTRIAXone SOD 1 GM in D5W MINI-BAG PLUS 50 ML IV ONE (17:15)
--- NOTE | 2019-08-05 17:31 | REP ---
Right upper quadrant sonography: History: Transaminases. Back and leg pain. Post cholecystectomy. Comparison CT study is from earlier today. Findings: Scanning through the right upper quadrant of the abdomen demonstrates no focal liver lesion. Gallbladder is surgically absent. Common bile duct is normal post cholecystectomy at 7.1 mm. Limited views of the pancreas show no abnormality. There is no evidence of ascites. There is a 1.90 x 1.8 x 1.8 cm anechoic area in the lower pole of the right kidney consistent with the cyst seen on CT. No hydronephrosis is seen. Right kidney measures 12.4 x 6.0 x 4.8 cm. Impression: 1.9 cm cyst lower pole right kidney. Post cholecystectomy. Otherwise negative. Electronically Signed by Migel Cardona MD 08/05/2019 05:35 P
[2019-08-05] MEDS ORDERED: CIPR-249 PO (17:47)
[2019-08-05 18:43] VITALS: BP 125/83
[2019-08-07 10:34] LABS: HEPATITIS B SURFACE ANTIGEN NEGATIVE (NEGATIVE)
[2019-08-07 11:01] LABS: HEPATITIS C VIRUS ABY INDEX < 0.0 INDEX (<0.8)
[2019-08-07 11:02] LABS: HEPATITIS B CORE ANTIBODY IGM NEGATIVE (NEGATIVE)
[2019-08-07 11:04] LABS: HEPATITIS A ANTIBODY IGM NEGATIVE (NEGATIVE)
== END 2019-08-05 19:00 | disposition home or self-care (01) ==
LOC: M ED 11:40
DX: N10 Acute pyelonephritis (principal); N39.0 Urinary tract infection, site not specified; N28.1 Cyst of kidney, acquired; R74.0 Nonspecific elevation of levels of transaminase and lactic acid dehydrogenase [LDH]; F33.9 Major depressive disorder, recurrent, unspecified; F41.9 Anxiety disorder, unspecified; K58.9 Irritable bowel syndrome, unspecified; Z88.1 Allergy status to other antibiotic agents; Z97.5 Presence of (intrauterine) contraceptive device; Z88.8 Allergy status to other drugs, medicaments and biological substances; F17.210 Nicotine dependence, cigarettes, uncomplicated
CPT/HCPCS: 74176; 76705; 80048; 80076; 81001; 83690; 84703; 85025; 86705; 86709; 86803; 87088; 87186; 87340; 96365; 96375; 96376; 99284; J0696; J1885; J2270; J2405

== ENCOUNTER → 2019-12-18 | Outpatient (CLI) | payer OTHER ==
[~2019-12-18] MED LIST changes: +PROP60TA14 PO
== END ==
LOC: M LABSMTC 13:32
PROVIDERS: ATTEND Family Medicine
DX: Z11.59 Encounter for screening for other viral diseases (principal); Z20.828 Contact with and (suspected) exposure to other viral communicable diseases
CPT/HCPCS: C9803; U0003

== ENCOUNTER → 2020-01-05 | Outpatient (CLI) | payer OTHER ==
[2020-02-01 20:28] LABS: BASO % 0.4 % (0.0-1.0); EOS # 0.2 10^3/uL (0.0-0.5); EOS % 3.2 % (0.0-3.0); HEMATOCRIT 39.6 % (36.0-47.0); LYMPH # 2.6 10^3/uL (1.5-5.0); LYMPH % 35.7 % (24.0-44.0); MEAN CORPUSCULAR HEMOGLOBIN 34.7 pg (27.0-33.0); MEAN CORPUSCULAR HGB CONC 32.8 g/dl (32.0-36.5); MEAN CORPUSCULAR VOLUME 105.6 fl (80.0-96.0); MONO # 0.5 10^3/uL (0.0-0.8); MONO % 7.2 % (0.0-5.0); NEUTROPHILS # 3.8 10^3/uL (1.5-8.5); NEUTROPHILS % 53.2 % (36.0-66.0); PLATELET COUNT, AUTOMATED 284 10^3/uL (150-450); RED BLOOD COUNT 3.75 10^6/uL (4.00-5.40); WHITE BLOOD COUNT 7.2 10^3/uL (4.0-10.0)
[2020-03-22 10:45] LABS: GLUCOSE, FASTING SEE SEPARATE REPORT
== END ==
LOC: M LAB 16:20
PROVIDERS: ATTEND Physician Assistant
DX: R53.83 Other fatigue (principal); R22.41 Localized swelling, mass and lump, right lower limb

== ENCOUNTER → 2021-02-20 | Outpatient (REF) | payer OTHER | LOC: M LAB REF 15:56 | PROVIDERS: ATTEND Physician Assistant Medical | DX: R50.9 Fever, unspecified (principal) ==

== ENCOUNTER → 2021-07-14 | Outpatient (CLI) | payer OTHER ==
[2021-07-14 15:55] LABS: C REACTIVE PROTEIN QUANTITATIV < 0.30 MG/DL (0.00-0.30); RHEUMATOID FACTOR QUANT < 10.0 IU/ML (<15.0); URIC ACID 5.8 MG/DL (2.6-6.0)
== END ==
LOC: M PLALAB 12:47
PROVIDERS: ATTEND Orthopaedic Surgery
DX: M51.36 Other intervertebral disc degeneration, lumbar region (principal)

== ENCOUNTER → 2022-01-04 | Outpatient (REF) | payer OTHER ==
[2022-01-04 17:42] LABS: APPEARANCE, URINE CLEAR (CLEAR); BACTERIA, URINE AUTO NEGATIVE (NEGATIVE); BILIRUBIN, URINE AUTO NEGATIVE (NEGATIVE); BLOOD, URINE BLOOD NEGATIVE (NEGATIVE); COLOR, URINE YELLOW (YELLOW); GLUCOSE, URINE (UA) AUTO NEGATIVE (NEGATIVE); KETONE, URINE AUTO NEGATIVE (NEGATIVE); LEUKOCYTE ESTERASE, URINE AUTO NEGATIVE (NEGATIVE); NITRITE, URINE AUTO NEGATIVE (NEGATIVE); PROTEIN, URINE AUTO NEGATIVE (NEGATIVE); RBC, URINE AUTO 0 /HPF (0-3); SPECIFIC GRAVITY URINE AUTO 1.013 (1.002-1.035); SQUAMOUS EPITHELIAL CELL UR AU 2 /HPF (0-6); UROBILINOGEN, URINE AUTO 0.2 mg/dL (0.0-2.0); WBC, URINE AUTO 0 /HPF (0-3)
[2022-01-04 17:45] LABS: BASO # 0.1 10^3/uL (0.0-0.2); BASO % 0.5 % (0.0-1.0); EOS # 0.2 10^3/uL (0.0-0.5); EOS % 1.6 % (0.0-3.0); HEMATOCRIT 48.9 % (36.0-47.0); HEMOGLOBIN 16.5 g/dl (12.0-15.5); LYMPH # 3.2 10^3/uL (1.5-5.0); LYMPH % 30.8 % (24.0-44.0); MEAN CORPUSCULAR HEMOGLOBIN 30.8 pg (27.0-33.0); MEAN CORPUSCULAR HGB CONC 33.7 g/dl (32.0-36.5); MEAN CORPUSCULAR VOLUME 91.2 fl (80.0-96.0); MONO # 0.5 10^3/uL (0.0-0.8); MONO % 5.1 % (2.0-8.0); NEUTROPHILS # 6.5 10^3/uL (1.5-8.5); NEUTROPHILS % 61.7 % (36.0-66.0); PLATELET COUNT, AUTOMATED 237 10^3/uL (150-450); RED BLOOD COUNT 5.36 10^6/uL (4.00-5.40); WHITE BLOOD COUNT 10.5 10^3/uL (4.0-10.0)
[2022-01-04 18:31] LABS: ERYTHROCYTE SEDIMENTATION RATE 5 mm/hr (0-20)
[2022-01-04 19:19] LABS: TOTAL PROTEIN,RANDOM URINE 6.1 MG/DL (0.0-12.0)
[2022-01-04 22:51] LABS: ALBUMIN 4.2 GM/DL (3.2-5.2); ALT/SGPT 15 U/L (12-78); BILIRUBIN,TOTAL 0.3 MG/DL (0.2-1.0); BLOOD UREA NITROGEN 11 MG/DL (7-18); CALCIUM LEVEL 9.5 MG/DL (8.5-10.1); CARBON DIOXIDE LEVEL 23 MEQ/L (21-32); CHLORIDE LEVEL 107 MEQ/L (98-107); CREATININE FOR GFR 0.71 MG/DL (0.55-1.30); GLOMERULAR FILTRATION RATE > 60.0 (>60); GLUCOSE, FASTING 80 MG/DL (70-100); LDH LACTATE DEHYDROGENASE 116 U/L (84-246); SODIUM LEVEL 137 MEQ/L (136-145); TOTAL PROTEIN 7.4 GM/DL (6.4-8.2)
[2022-01-04 23:58] LABS: HEPATITIS B SURFACE ANTIGEN NEGATIVE (NEGATIVE)
[2022-01-05 00:24] LABS: HEPATITIS C VIRUS ABY INDEX < 0.0 INDEX (<0.8)
[2022-01-05 00:25] LABS: HEPATITIS B CORE ANTIBODY IGM NEGATIVE (NEGATIVE)
[2022-01-09 03:28] LABS: COMPLEMENT C3 148 MG/DL (90-180); COMPLEMENT C4 51 MG/DL (10-40)
[2022-01-09 16:08] LABS: ALDOLASE 4.3 U/L (3.3-10.3)
== END ==
LOC: M SFHCRHEU 13:42
PROVIDERS: ATTEND Internal Medicine Rheumatology
DX: R76.8 Other specified abnormal immunological findings in serum (principal); M35.3 Polymyalgia rheumatica; Z79.899 Other long term (current) drug therapy; I73.00 Raynaud's syndrome without gangrene; R21 Rash and other nonspecific skin eruption; L65.9 Nonscarring hair loss, unspecified

== ENCOUNTER → 2022-01-30 | Outpatient (CLI) | payer OTHER ==
[2022-01-30 17:10] LABS: BASO % 0.4 % (0.0-1.0); EOS # 0.2 10^3/uL (0.0-0.5); EOS % 1.7 % (0.0-3.0); HEMATOCRIT 46.9 % (36.0-47.0); HEMOGLOBIN 15.8 g/dl (12.0-15.5); LYMPH # 3.6 10^3/uL (1.5-5.0); LYMPH % 34.6 % (24.0-44.0); MEAN CORPUSCULAR HEMOGLOBIN 30.6 pg (27.0-33.0); MEAN CORPUSCULAR HGB CONC 33.7 g/dl (32.0-36.5); MEAN CORPUSCULAR VOLUME 90.9 fl (80.0-96.0); MONO # 0.7 10^3/uL (0.0-0.8); MONO % 6.9 % (2.0-8.0); NEUTROPHILS # 5.8 10^3/uL (1.5-8.5); NEUTROPHILS % 56.1 % (36.0-66.0); PLATELET COUNT, AUTOMATED 254 10^3/uL (150-450); RED BLOOD COUNT 5.16 10^6/uL (4.00-5.40); WHITE BLOOD COUNT 10.4 10^3/uL (4.0-10.0)
[2022-01-30 17:14] LABS: APPEARANCE, URINE MANUAL CLEAR (CLEAR); BILIRUBIN, URINE MANUAL NEGATIVE (NEGATIVE); BLOOD URINE MANUAL NEGATIVE (NEGATIVE); COLOR, URINE MANUAL YELLOW (YELLOW); GLUCOSE, URINE (UA) MANUAL NEGATIVE (NEGATIVE); KETONE, URINE MANUAL NEGATIVE (NEGATIVE); LEUKOCYTE ESTERASE, URINE MAN NEGATIVE (NEGATIVE); NITRITE, URINE MANUAL NEGATIVE (NEGATIVE); PROTEIN, URINE MANUAL NEGATIVE (NEGATIVE); UROBILINOGEN, URINE MANUAL NORMAL (NORMAL)
[2022-01-30 17:38] LABS: CREATININE,RANDOM URINE 59.9 MG/DL; TOTAL PROTEIN,RANDOM URINE < 5.0 MG/DL (0.0-12.0)
[2022-01-30 18:47] LABS: ERYTHROCYTE SEDIMENTATION RATE 7 mm/hr (0-20)
[2022-01-30 19:45] LABS: ALT/SGPT 12 U/L (12-78); BILIRUBIN,TOTAL 0.4 MG/DL (0.2-1.0); BLOOD UREA NITROGEN 6 MG/DL (7-18); CALCIUM LEVEL 9.7 MG/DL (8.5-10.1); CARBON DIOXIDE LEVEL 23 MEQ/L (21-32); CHLORIDE LEVEL 107 MEQ/L (98-107); COMPLEMENT C3 154 MG/DL (90-180); CREATININE FOR GFR 0.74 MG/DL (0.55-1.30); GLOMERULAR FILTRATION RATE > 60.0 (>60); GLUCOSE, FASTING 75 MG/DL (70-100); LDH LACTATE DEHYDROGENASE 135 U/L (84-246); POTASSIUM SERUM 3.9 MEQ/L (3.5-5.1); SODIUM LEVEL 135 MEQ/L (136-145)
[2022-01-31 14:21] LABS: COMPLEMENT C4 47 MG/DL (10-40)
== END ==
LOC: M RAD 15:41
PROVIDERS: ATTEND Internal Medicine Rheumatology
DX: R76.8 Other specified abnormal immunological findings in serum (principal); M35.3 Polymyalgia rheumatica; I73.00 Raynaud's syndrome without gangrene; L65.9 Nonscarring hair loss, unspecified; R21 Rash and other nonspecific skin eruption; Z79.899 Other long term (current) drug therapy

== ENCOUNTER → 2022-03-19 | Outpatient (REF) | payer OTHER ==
[2022-03-19 13:37] LABS: APPEARANCE, URINE MANUAL CLEAR (CLEAR); BILIRUBIN, URINE MANUAL NEGATIVE (NEGATIVE); BLOOD URINE MANUAL NEGATIVE (NEGATIVE); COLOR, URINE MANUAL LT YELLOW (YELLOW); GLUCOSE, URINE (UA) MANUAL NEGATIVE (NEGATIVE); KETONE, URINE MANUAL NEGATIVE (NEGATIVE); LEUKOCYTE ESTERASE, URINE MAN NEGATIVE (NEGATIVE); NITRITE, URINE MANUAL NEGATIVE (NEGATIVE); PROTEIN, URINE MANUAL NEGATIVE (NEGATIVE); SPECIFIC GRAVITY,URINE MANUAL 1.005 (1.002-1.035); UROBILINOGEN, URINE MANUAL NORMAL (NORMAL)
== END ==
LOC: M LAB REF 12:51
PROVIDERS: ATTEND Physician Assistant Medical
DX: N39.0 Urinary tract infection, site not specified (principal)

== ENCOUNTER → 2023-02-14 | Outpatient (REF) | payer OTHER ==
[~2023-02-14] MED LIST changes: -PAXI20TA29 PO; +PAXI20TA30 PO
== END ==
LOC: M LAB REF 11:21
PROVIDERS: ATTEND Physician Assistant
DX: B34.9 Viral infection, unspecified (principal)

== ENCOUNTER → 2023-02-15 | Outpatient (CLI) | payer OTHER ==
[2023-02-15 12:36] LABS: BASO # 0.1 10^3/uL (0.0-0.2); BASO % 0.6 % (0.0-1.0); EOS # 0.2 10^3/uL (0.0-0.5); EOS % 2.8 % (0.0-3.0); HEMATOCRIT 53.8 % (36.0-47.0); LYMPH # 3.1 10^3/uL (1.5-5.0); LYMPH % 37.7 % (24.0-44.0); MEAN CORPUSCULAR VOLUME 94.2 fl (80.0-96.0); MONO # 0.6 10^3/uL (0.0-0.8); MONO % 7.1 % (2.0-8.0); NEUTROPHILS # 4.3 10^3/uL (1.5-8.5); NEUTROPHILS % 51.4 % (36.0-66.0); PLATELET COUNT, AUTOMATED 244 10^3/uL (150-450); RED BLOOD COUNT 5.71 10^6/uL (4.00-5.40); WHITE BLOOD COUNT 8.3 10^3/uL (4.0-10.0)
[2023-02-15 12:47] LABS: HEMOGLOBIN 18.3 g/dl (12.0-15.5)
[2023-02-15 13:11] LABS: FERRITIN 53.4 NG/ML (7.3-270.7)
[2023-02-15 13:13] LABS: FREE T4 1.06 NG/DL (0.89-1.76)
[2023-02-15 13:15] LABS: ALBUMIN 4.3 G/DL (3.2-5.2); ALKALINE PHOSPHATASE 88 U/L (46-116); ALT/SGPT 23 U/L (7.0-40); AST/SGOT 14 U/L (<34); BILIRUBIN,TOTAL 0.7 MG/DL (0.3-1.2); BLOOD UREA NITROGEN 8 MG/DL (9-23); CALCIUM LEVEL 9.6 MG/DL (8.5-10.1); CARBON DIOXIDE LEVEL 26 MMOL/L (20-31); CHLORIDE LEVEL 106 MMOL/L (98-107); CHOLESTEROL LEVEL 248 MG/DL (<200); CHOLESTEROL RISK RATIO 4.42 (<5); CREATININE FOR GFR 0.79 MG/DL (0.55-1.30); GLOMERULAR FILTRATION RATE > 60.0 (>58); GLUCOSE, FASTING 96 MG/DL (60-100); IRON (FE) 126 UG/DL (50-170); PERCENT SATURATION 36.6 % (13.2-45.0); POTASSIUM SERUM 3.8 MMOL/L (3.5-5.1); SODIUM LEVEL 139 MMOL/L (136-145); TOTAL IRON BINDING CAPACITY 344 UG/DL (250-425); TOTAL PROTEIN 7.5 G/DL (5.7-8.2); TRIGLYCERIDES LEVEL 330 MG/DL (<150)
[2023-02-15 13:16] LABS: VITAMIN B12 LEVEL 373 PG/ML (211-911)
[2023-02-16 19:15] LABS: RHEUMATOID FACTOR QUANT 5.3 IU/ML (<14)
[2023-02-18 09:53] LABS: DRVV SCREEN 40.1 SECONDS
== END ==
LOC: M LAB 11:33
PROVIDERS: ATTEND Nurse Practitioner Adult Health
DX: E78.5 Hyperlipidemia, unspecified (principal); R21 Rash and other nonspecific skin eruption; D69.6 Thrombocytopenia, unspecified; R53.83 Other fatigue; E55.9 Vitamin D deficiency, unspecified; M25.59 Pain in other specified joint; I10 Essential (primary) hypertension; D64.9 Anemia, unspecified; Z79.899 Other long term (current) drug therapy; R63.5 Abnormal weight gain

== ENCOUNTER → 2023-04-11 | Outpatient (REF) | payer OTHER | LOC: M SFHCWAGY 12:59 | PROVIDERS: ATTEND Nurse Practitioner Family | DX: Z12.4 Encounter for screening for malignant neoplasm of cervix (principal); R87.610 Atypical squamous cells of undetermined significance on cytologic smear of cervix (ASC-US); R87.810 Cervical high risk human papillomavirus (HPV) DNA test positive ==

== ENCOUNTER → 2023-04-11 | Outpatient (CLI) | payer OTHER | LOC: M WHC 10:56 | PROVIDERS: ATTEND Nurse Practitioner Family | DX: Z12.31 Encounter for screening mammogram for malignant neoplasm of breast (principal) ==

== ENCOUNTER → 2023-04-12 | Outpatient (CLI) | payer OTHER | LOC: M WHC 12:03 | PROVIDERS: ATTEND Nurse Practitioner Adult Health | DX: R60.0 Localized edema (principal); M79.661 Pain in right lower leg; M79.662 Pain in left lower leg ==

== ENCOUNTER → 2023-06-21 | Outpatient (REF) | payer OTHER | LOC: M SFHCWAGY 15:17 | PROVIDERS: ATTEND Advanced Practice Midwife | DX: R87.610 Atypical squamous cells of undetermined significance on cytologic smear of cervix (ASC-US) (principal); R87.810 Cervical high risk human papillomavirus (HPV) DNA test positive ==

== ENCOUNTER → 2023-09-13 | Outpatient (CLI) | payer OTHER ==
[~2023-09-13] MED LIST changes: +FURO40TA2 PO; +GABA-282 PO; +HYDR200T46 PO; -KLON0.5T PO; +KLON0.5T8 PO; -KLON1TAB PO; +KLON1TAB13 PO; +TIZA10TA PO
== END ==
LOC: M LAB 16:54
PROVIDERS: ATTEND Registered Nurse Case Management
DX: R76.8 Other specified abnormal immunological findings in serum (principal)

== ENCOUNTER 2023-09-18 05:56 | Day surgery (SDC) | payer OTHER ==
[~2023-09-18] VITALS: Ht 154.9 cm; Wt 108.4 kg
[2023-09-18] MEDS ORDERED: LR 1,000 ML IV SCH ×2 (06:00→06:35)
[2023-09-18 07:03] LABS: HEMATOCRIT 47.7 % (36.0-47.0); HEMOGLOBIN 16.1 g/dl (12.0-15.5); MEAN CORPUSCULAR HGB CONC 33.8 g/dl (32.0-36.5); MEAN CORPUSCULAR VOLUME 91.7 fl (80.0-96.0); PLATELET COUNT, AUTOMATED 244 10^3/uL (150-450); WHITE BLOOD COUNT 8.9 10^3/uL (4.0-10.0)
[2023-09-18 07:08] LABS: ALBUMIN 4.4 G/DL (3.2-5.2); ALKALINE PHOSPHATASE 69 U/L (46-116); ALT/SGPT 15 U/L (7.0-40); AST/SGOT 16 U/L (<34); BILIRUBIN,TOTAL 0.6 MG/DL (0.3-1.2); BLOOD UREA NITROGEN 9 MG/DL (9-23); CALCIUM LEVEL 10.4 MG/DL (8.5-10.1); CARBON DIOXIDE LEVEL 24 MMOL/L (20-31); CHLORIDE LEVEL 109 MMOL/L (98-107); CREATININE FOR GFR 0.87 MG/DL (0.55-1.30); GLOMERULAR FILTRATION RATE > 60.0 (>58); GLUCOSE, FASTING 87 MG/DL (60-100); POTASSIUM SERUM 4.4 MMOL/L (3.5-5.1); SODIUM LEVEL 139 MMOL/L (136-145); TOTAL PROTEIN 7.3 G/DL (5.7-8.2)
[2023-09-18] MEDS ORDERED: propofoL 200 MG/20 ML VIAL As Ordered ONE (07:15)
[2023-09-18] MEDS ORDERED: fentaNYL 100 MCG/2 ML INJECTION As Ordered ONE (07:15)
[2023-09-18] MEDS ORDERED: MIDAZOLAM INJ 2MG/2ML VIAL As Ordered ONE (07:15)
[2023-09-18] MEDS ORDERED: LIDOCAINE 2% 100MG/5ML SDV (FOR ANES.) As Ordered ONE (07:15)
[2023-09-18] MEDS ORDERED: ONDANSETRON 4MG 2ML VIAL As Ordered ONE (07:15)
[2023-09-18] MEDS: IODINE STRONG SOLN 15ML BTL As Ordered ONE (07:15)
[2023-09-18] MEDS ORDERED: ACETAMINOPHEN 1000MG 100ML IV BAG As Ordered ONE (07:15)
[2023-09-18] MEDS: LIDOCAINE W/EPINEPHRINE 1% 20ML VIAL As Ordered ONE (07:27)
[2023-09-18] MEDS ORDERED: KETOROLAC 60MG 2ML VIAL As Ordered ONE (10:24)
[2023-09-18] MEDS ORDERED: METOCLOPRAMIDE INJ 10MG/2ML VIAL IV PRN (11:20)
[2023-09-18] MEDS ORDERED: ONDANSETRON 4MG 2ML VIAL IV PRN (11:20)
[2023-09-18] MEDS ORDERED: MORPHINE 2 MG/ML 1ML VIAL IV PRN (11:25)
[2023-09-18 11:50] VITALS: BP 126/75; TEMP 97.5; O2SAT 96
== END 2023-09-18 11:50 | disposition home or self-care (01) ==
LOC: M SDC 05:56
PROVIDERS: ATTEND Obstetrics & Gynecology
DX: D06.9 Carcinoma in situ of cervix, unspecified (principal); N87.0 Mild cervical dysplasia; Z68.42 Body mass index [BMI] 45.0-49.9, adult; Z91.040 Latex allergy status; Z91.048 Other nonmedicinal substance allergy status; Z88.8 Allergy status to other drugs, medicaments and biological substances; Z88.1 Allergy status to other antibiotic agents; F17.210 Nicotine dependence, cigarettes, uncomplicated; Z79.899 Other long term (current) drug therapy
CPT/HCPCS: 36415; 57522; 80053; 81025; 85027; 86850; 86900; 86901; 88305; 88307; J0131; J1100; J1885; J2250; J2405; J3010

== ENCOUNTER → 2023-09-30 | Outpatient (REF) | payer OTHER | LOC: M SFHCPLAZ 12:19 | PROVIDERS: ATTEND Student in an Organized Health Care Education/Training Program | DX: Z76.89 Persons encountering health services in other specified circumstances (principal) ==

== ENCOUNTER → 2023-09-30 | Outpatient (CLI) | payer OTHER ==
[2023-09-30 13:32] LABS: BASO # 0.1 10^3/uL (0.0-0.2); BASO % 0.5 % (0.0-1.0); EOS # 0.2 10^3/uL (0.0-0.5); EOS % 1.8 % (0.0-3.0); HEMATOCRIT 47.1 % (36.0-47.0); LYMPH # 3.1 10^3/uL (1.5-5.0); LYMPH % 27.7 % (24.0-44.0); MEAN CORPUSCULAR HEMOGLOBIN 31.2 pg (27.0-33.0); MEAN CORPUSCULAR VOLUME 91.8 fl (80.0-96.0); MONO # 0.8 10^3/uL (0.0-0.8); MONO % 7.3 % (2.0-8.0); NEUTROPHILS # 6.9 10^3/uL (1.5-8.5); NEUTROPHILS % 62.4 % (36.0-66.0); PLATELET COUNT, AUTOMATED 247 10^3/uL (150-450); RED BLOOD COUNT 5.13 10^6/uL (4.00-5.40)
[2023-09-30 13:45] LABS: HEMOGLOBIN A1c 4.7 % (4.0-6.0)
[2023-09-30 14:05] LABS: ALBUMIN 4.2 G/DL (3.2-5.2); ALKALINE PHOSPHATASE 60 U/L (46-116); ALT/SGPT 16 U/L (7.0-40); AST/SGOT 16 U/L (<34); BILIRUBIN,TOTAL 0.5 MG/DL (0.3-1.2); BLOOD UREA NITROGEN 10 MG/DL (9-23); CALCIUM LEVEL 9.4 MG/DL (8.5-10.1); CARBON DIOXIDE LEVEL 28 MMOL/L (20-31); CHLORIDE LEVEL 104 MMOL/L (98-107); CHOLESTEROL LEVEL 138 MG/DL (<200); CHOLESTEROL RISK RATIO 2.79 (<5); GLOMERULAR FILTRATION RATE > 60.0 (>58); GLUCOSE, FASTING 70 MG/DL (60-100); HDL CHOLESTEROL 49.3 MG/DL (>40); LDL CHOLESTEROL 58.7 MG/DL (<100); NON-HDL-C 88.7 MG/DL; POTASSIUM SERUM 3.8 MMOL/L (3.5-5.1); SODIUM LEVEL 140 MMOL/L (136-145); TOTAL PROTEIN 7.3 G/DL (5.7-8.2); TRIGLYCERIDES LEVEL 150 MG/DL (<150)
[2023-09-30 14:06] LABS: FREE T4 1.19 NG/DL (0.89-1.76); THYROID STIMULATING HORMONE 1.634 uIU/ML (0.55-4.78)
[2023-09-30 14:31] LABS: HIV 1&2 SCREEN NEGATIVE (NEGATIVE)
[2023-09-30 14:38] LABS: HEPATITIS C VIRUS ABY INDEX < 0.02 INDEX (<0.8)
== END ==
LOC: M PLALAB 11:29
PROVIDERS: ATTEND Student in an Organized Health Care Education/Training Program
DX: Z76.89 Persons encountering health services in other specified circumstances (principal)

== ENCOUNTER → 2023-12-17 | Outpatient (CLI) | payer OTHER ==
[~2023-12-17] MED LIST changes: +FLUO-365 PO; -FLUO20CA22 PO
[2023-12-17 11:06] LABS: ALBUMIN 4.3 G/DL (3.2-5.2); ALKALINE PHOSPHATASE 80 U/L (46-116); ALT/SGPT 20 U/L (7.0-40); AST/SGOT 30 U/L (<34); BILIRUBIN,TOTAL 0.4 MG/DL (0.3-1.2); BLOOD UREA NITROGEN 9 MG/DL (9-23); CALCIUM LEVEL 9.3 MG/DL (8.5-10.1); CARBON DIOXIDE LEVEL 23 MMOL/L (20-31); CHLORIDE LEVEL 107 MMOL/L (98-107); CREATININE FOR GFR 0.91 MG/DL (0.55-1.30); GLOMERULAR FILTRATION RATE > 60.0 (>58); GLUCOSE, FASTING 80 MG/DL (60-100); POTASSIUM SERUM 4.6 MMOL/L (3.5-5.1); SODIUM LEVEL 137 MMOL/L (136-145); TOTAL PROTEIN 7.2 G/DL (5.7-8.2)
== END ==
LOC: M LAB 08:55
PROVIDERS: ATTEND Internal Medicine Cardiovascular Disease
DX: R00.2 Palpitations (principal); R06.09 Other forms of dyspnea; I10 Essential (primary) hypertension

== ENCOUNTER → 2023-12-27 | Outpatient (CLI) | payer OTHER ==
[2023-12-27 12:43] LABS: BASO # 0.1 10^3/uL (0.0-0.2); BASO % 0.7 % (0.0-1.0); EOS # 0.2 10^3/uL (0.0-0.5); EOS % 2.2 % (0.0-3.0); HEMATOCRIT 46.9 % (36.0-47.0); HEMOGLOBIN 15.9 g/dl (12.0-15.5); LYMPH # 3.5 10^3/uL (1.5-5.0); LYMPH % 36.5 % (24.0-44.0); MEAN CORPUSCULAR HEMOGLOBIN 30.2 pg (27.0-33.0); MEAN CORPUSCULAR HGB CONC 33.9 g/dl (32.0-36.5); MONO # 0.7 10^3/uL (0.0-0.8); MONO % 7.4 % (2.0-8.0); NEUTROPHILS # 5.1 10^3/uL (1.5-8.5); NEUTROPHILS % 52.8 % (36.0-66.0); PLATELET COUNT, AUTOMATED 256 10^3/uL (150-450); RED BLOOD COUNT 5.27 10^6/uL (4.00-5.40); WHITE BLOOD COUNT 9.7 10^3/uL (4.0-10.0)
[2023-12-27 12:53] LABS: C REACTIVE PROTEIN QUANTITATIV < 0.40 MG/DL (<1.0)
[2023-12-27 12:55] LABS: ALBUMIN 4.1 G/DL (3.2-5.2); ALKALINE PHOSPHATASE 79 U/L (46-116); ALT/SGPT 12 U/L (7.0-40); AST/SGOT < 8 U/L (<34); BILIRUBIN,TOTAL 0.3 MG/DL (0.3-1.2); BLOOD UREA NITROGEN 10 MG/DL (9-23); CALCIUM LEVEL 9.5 MG/DL (8.5-10.1); CARBON DIOXIDE LEVEL 24 MMOL/L (20-31); CHLORIDE LEVEL 106 MMOL/L (98-107); CREATININE FOR GFR 0.87 MG/DL (0.55-1.30); GLOMERULAR FILTRATION RATE > 60.0 (>58); GLUCOSE, FASTING 87 MG/DL (60-100); POTASSIUM SERUM 3.9 MMOL/L (3.5-5.1); SODIUM LEVEL 138 MMOL/L (136-145); TOTAL PROTEIN 6.8 G/DL (5.7-8.2)
[2023-12-27 12:56] LABS: COMPLEMENT C4 48.4 MG/DL (12-36)
[2023-12-27 13:05] LABS: ERYTHROCYTE SEDIMENTATION RATE 11 mm/hr (0-20)
[2023-12-30 21:42] LABS: ANCA SCREEN Negative (Negative)
== END ==
LOC: M LAB 11:52
PROVIDERS: ATTEND Physician Assistant
DX: M25.50 Pain in unspecified joint (principal)

== ENCOUNTER → 2024-02-05 | Outpatient (CLI) | payer OTHER | LOC: M PLAIMG 09:29 | PROVIDERS: ATTEND Physician Assistant | DX: J32.8 Other chronic sinusitis (principal) ==

== ENCOUNTER → 2024-03-31 | Outpatient (CLI) | payer OTHER ==
[~2024-03-31] MED LIST changes: +ATOR1TAB21 PO; +BENL200I SC; +FENO134C20 PO; +GABA-1172 PO; -GABA-282 PO; +PHEN-239 PO; +SPIR-10 PO; +TOPI-21 PO
== END ==
LOC: M LAB 08:58
PROVIDERS: ATTEND Student in an Organized Health Care Education/Training Program
DX: R53.83 Other fatigue (principal)

== ENCOUNTER → 2024-07-03 | Outpatient (CLI) | payer OTHER ==
[~2024-07-03] MED LIST changes: +PROHANCE 279.3MG/ML 15ML VIAL ONE; +PROHANCE 279.3MG/ML 5ML VIAL ONE
[2024-07-06 16:42] LABS: IgE ALTERNARIA ALTERNATA < 0.10 kU/L (<0.10); IgE ASPERGILLUS FUMIGATUS < 0.10 kU/L (<0.10); IgE CLADOSPORIUM HERBARUM < 0.10 kU/L (<0.10); IgE PENICILLIUM NOTATUM < 0.10 kU/L (<0.10); MUCOR RACEMOSUS IGE < 0.10 kU/L (<0.10); STEMP BOTRYOSUM IGE < 0.10 kU/L (<0.10)
== END ==
LOC: M PLAIMG 13:14
PROVIDERS: ATTEND Student in an Organized Health Care Education/Training Program
DX: R20.0 Anesthesia of skin (principal); Z77.120 Contact with and (suspected) exposure to mold (toxic); M51.379 Other intervertebral disc degeneration, lumbosacral region without mention of lumbar back pain or lower extremity pain

== ENCOUNTER → 2024-07-15 | Outpatient (CLI) | payer OTHER ==
[~2024-07-15] MED LIST changes: -PROHANCE 279.3MG/ML 15ML VIAL ONE; -PROHANCE 279.3MG/ML 5ML VIAL ONE
[2024-07-15 18:15] LABS: BASO # 0.1 10^3/uL (0.0-0.2); BASO % 0.7 % (0.0-1.0); EOS # 0.2 10^3/uL (0.0-0.5); EOS % 2.7 % (0.0-3.0); HEMATOCRIT 45.1 % (36.0-47.0); HEMOGLOBIN 15.3 g/dl (12.0-15.5); LYMPH # 2.4 10^3/uL (1.5-5.0); LYMPH % 32.8 % (24.0-44.0); MEAN CORPUSCULAR HEMOGLOBIN 30.5 pg (27.0-33.0); MEAN CORPUSCULAR HGB CONC 33.9 g/dl (32.0-36.5); MONO # 0.6 10^3/uL (0.0-0.8); MONO % 8.7 % (2.0-8.0); NEUTROPHILS % 54.8 % (36.0-66.0); PLATELET COUNT, AUTOMATED 236 10^3/uL (150-450); RED BLOOD COUNT 5.01 10^6/uL (4.00-5.40); WHITE BLOOD COUNT 7.3 10^3/uL (4.0-10.0)
[2024-07-15 18:22] LABS: C REACTIVE PROTEIN QUANTITATIV < 0.50 MG/DL (<1.0)
[2024-07-15 18:23] LABS: ALKALINE PHOSPHATASE 64 U/L (35-104); ALT/SGPT 23 U/L (7.0-40); AST/SGOT 25 U/L (<34); BILIRUBIN,TOTAL 0.5 MG/DL (0.3-1.2); BLOOD UREA NITROGEN 9 MG/DL (9-23); CALCIUM LEVEL 9.8 MG/DL (8.5-10.1); CARBON DIOXIDE LEVEL 23 MMOL/L (20-31); CHLORIDE LEVEL 109 MMOL/L (98-107); CREATININE FOR GFR 0.81 MG/DL (0.55-1.30); GLOMERULAR FILTRATION RATE > 60.0 (>58); GLUCOSE, FASTING 98 MG/DL (60-100); POTASSIUM SERUM 4.2 MMOL/L (3.5-5.1); SODIUM LEVEL 140 MMOL/L (136-145); TOTAL PROTEIN 7.1 G/DL (5.7-8.2)
[2024-07-15 18:24] LABS: COMPLEMENT C3 181.6 MG/DL (90.0-170.0)
[2024-07-15 18:39] LABS: ERYTHROCYTE SEDIMENTATION RATE 15 mm/hr (0-20)
== END ==
LOC: M PLALAB 14:35
PROVIDERS: ATTEND Internal Medicine
DX: L81.9 Disorder of pigmentation, unspecified (principal); M32.9 Systemic lupus erythematosus, unspecified

== ENCOUNTER → 2024-12-16 | Outpatient (CLI) | payer OTHER ==
[~2024-12-16] MED LIST changes: -PHEN-239 PO; +PHEN37.511 PO
[2024-12-16 13:47] LABS: BASO # 0.1 10^3/uL (0.0-0.2); BASO % 0.8 % (0.0-1.0); EOS # 0.2 10^3/uL (0.0-0.5); EOS % 2.3 % (0.0-3.0); LYMPH # 2.6 10^3/uL (1.5-5.0); LYMPH % 27.5 % (24.0-44.0); MONO # 0.8 10^3/uL (0.0-0.8); MONO % 8.1 % (2.0-8.0); NEUTROPHILS # 5.8 10^3/uL (1.5-8.5); NEUTROPHILS % 61.0 % (36.0-66.0); PLATELET COUNT, AUTOMATED 266 10^3/uL (150-450)
[2024-12-16 13:50] LABS: ALT/SGPT 18.0 U/L (7.0-40); AST/SGOT 22.0 U/L (<34); CHOLESTEROL LEVEL 253.0 MG/DL (<200); CHOLESTEROL RISK RATIO 5.77 (<5); LDL CHOLESTEROL 148.4 MG/DL (<100); NON-HDL-C 209.2 MG/DL; TRIGLYCERIDES LEVEL 304.0 MG/DL (<150)
[2024-12-16 14:06] LABS: ESTIMATED AVERAGE GLUCOSE 97.0 MG/DL (60-110)
== END ==
LOC: M PLALAB 10:55
PROVIDERS: ATTEND Student in an Organized Health Care Education/Training Program
DX: Z00.00 Encounter for general adult medical examination without abnormal findings (principal); R10.11 Right upper quadrant pain

== ENCOUNTER → 2025-01-18 | Outpatient (CLI) | payer OTHER ==
[~2025-01-18] MED LIST changes: -PROZ20CA11 PO; +PROZ20CA12 PO
== END ==
LOC: M RAD 07:16
PROVIDERS: ATTEND Student in an Organized Health Care Education/Training Program
DX: R10.11 Right upper quadrant pain (principal); K76.0 Fatty (change of) liver, not elsewhere classified; R16.0 Hepatomegaly, not elsewhere classified

== ENCOUNTER → 2025-02-02 | Outpatient (CLI) | payer OTHER ==
[~2025-02-02] MED LIST changes: -IBUP-1022 PO; +IBUP600T42 PO
[2025-02-02 17:24] LABS: BASO # 0.1 10^3/uL (0.0-0.2); BASO % 0.6 % (0.0-1.0); EOS # 0.2 10^3/uL (0.0-0.5); EOS % 2.0 % (0.0-3.0); LYMPH # 3.0 10^3/uL (1.5-5.0); LYMPH % 28.6 % (24.0-44.0); MONO # 0.8 10^3/uL (0.0-0.8); MONO % 8.0 % (2.0-8.0); NEUTROPHILS # 6.3 10^3/uL (1.5-8.5); NEUTROPHILS % 60.4 % (36.0-66.0); PLATELET COUNT, AUTOMATED 283 10^3/uL (150-450)
[2025-02-02 17:44] LABS: CALCIUM LEVEL 10.6 MG/DL (8.5-10.1); CARBON DIOXIDE LEVEL 26.0 MMOL/L (20-31); CHLORIDE LEVEL 105.0 MMOL/L (98-107); CREATININE FOR GFR 0.88 MG/DL (0.55-1.30); GLOMERULAR FILTRATION RATE 84.1 (>58); POTASSIUM SERUM 4.0 MMOL/L (3.5-5.1); SODIUM LEVEL 140.0 MMOL/L (136-145)
== END ==
LOC: M PLALAB 14:27
PROVIDERS: ATTEND Internal Medicine
DX: Z79.899 Other long term (current) drug therapy (principal)

== ENCOUNTER → 2025-02-02 | Outpatient (CLI) | payer OTHER | LOC: M PLAIMG 14:25 | PROVIDERS: ATTEND Student in an Organized Health Care Education/Training Program | DX: M25.571 Pain in right ankle and joints of right foot (principal); Z79.899 Other long term (current) drug therapy ==

== ENCOUNTER → 2025-02-08 | Outpatient (CLI) | payer OTHER ==
[2025-02-08 17:33] LABS: BASO # 0.1 10^3/uL (0.0-0.2); BASO % 0.7 % (0.0-1.0); EOS # 0.2 10^3/uL (0.0-0.5); EOS % 2.0 % (0.0-3.0); LYMPH # 3.2 10^3/uL (1.5-5.0); LYMPH % 27.0 % (24.0-44.0); MONO # 0.9 10^3/uL (0.0-0.8); MONO % 7.8 % (2.0-8.0); NEUTROPHILS # 7.3 10^3/uL (1.5-8.5); NEUTROPHILS % 62.2 % (36.0-66.0); PLATELET COUNT, AUTOMATED 284 10^3/uL (150-450)
== END ==
LOC: M PLALAB 16:50
PROVIDERS: ATTEND Internal Medicine
DX: Z79.899 Other long term (current) drug therapy (principal)

== ENCOUNTER → 2025-03-24 | Outpatient (CLI) | payer OTHER ==
[2025-03-24 17:28] LABS: ALT/SGPT 18 U/L (7.0-40); AST/SGOT 22 U/L (<34); CALCIUM LEVEL 9.9 MG/DL (8.5-10.1); CARBON DIOXIDE LEVEL 25 MMOL/L (20-31); CHLORIDE LEVEL 108 MMOL/L (98-107); CREATININE FOR GFR 0.84 MG/DL (0.55-1.30); GLOMERULAR FILTRATION RATE 88.9 (>58); POTASSIUM SERUM 4.1 MMOL/L (3.5-5.1); SODIUM LEVEL 140 MMOL/L (136-145)
== END ==
LOC: M PLALAB 15:13
PROVIDERS: ATTEND Physician Assistant
DX: E83.52 Hypercalcemia (principal)

== ENCOUNTER → 2025-04-27 | Outpatient (REF) | payer OTHER ==
[~2025-04-27] MED LIST changes: -PROZ20CA12 PO; +PROZ20CA25 PO
== END ==
LOC: M LAB REF 11:52
PROVIDERS: ATTEND Physician Assistant Medical
DX: B34.9 Viral infection, unspecified (principal)

== ENCOUNTER → 2025-05-19 | Outpatient (CLI) | payer OTHER, SELFPAY ==
[2025-05-19 14:47] LABS: PLATELET COUNT, AUTOMATED 323 10^3/uL (150-450)
[2025-05-19 15:09] LABS: ALT/SGPT 14 U/L (7.0-40); AST/SGOT 22 U/L (<34); CALCIUM LEVEL 9.1 MG/DL (8.5-10.1); CARBON DIOXIDE LEVEL 22 MMOL/L (20-31); CHLORIDE LEVEL 112 MMOL/L (98-107); CREATININE FOR GFR 0.76 MG/DL (0.55-1.30); GLOMERULAR FILTRATION RATE > 90.0 (>58); POTASSIUM SERUM 4.1 MMOL/L (3.5-5.1); SODIUM LEVEL 140 MMOL/L (136-145)
[2025-05-19 15:13] LABS: ESTIMATED AVERAGE GLUCOSE 94.0 MG/DL (60-110)
== END ==
LOC: M PLALAB 10:09
PROVIDERS: ATTEND Family Medicine
DX: Z01.818 Encounter for other preprocedural examination (principal); E66.01 Morbid (severe) obesity due to excess calories

== ENCOUNTER → 2025-05-19 | Outpatient (REF) | payer OTHER | LOC: M SFHCPLAZ 09:54 | PROVIDERS: ATTEND Family Medicine | DX: Z53.9 Procedure and treatment not carried out, unspecified reason (principal) ==

== ENCOUNTER → 2025-05-26 | Outpatient (REF) | payer OTHER | LOC: M LAB REF 15:37 | PROVIDERS: ATTEND Physician Assistant | DX: B34.9 Viral infection, unspecified (principal) ==